=== PATIENT | male | born 1945 | race Caucasian/White ===

== ENCOUNTER 2021-04-08 21:06 | Inpatient (IN) ==
[2021-04-08] MEDS ORDERED: Ondansetron 4 MG/2 ML VIAL IVP PRN (23:30)
[2021-04-08] MEDS ORDERED: Naloxone 0.4 MG/ML INJ IVP PRN (23:30)
[2021-04-08] MEDS ORDERED: D5% in Water 1,000 ML IVC PRN (23:32)
[2021-04-08] MEDS ORDERED: *HR* Dextrose 50 % in Water (Vial) 50 ML VIAL IVP PRN (23:32)
[2021-04-08] MEDS ORDERED: Dextrose Gel 15 GM/37.5 ML TUBE PO PRN ×2 (23:32)
[2021-04-08] MEDS ORDERED: Perflutren Lipid Microsphere 1.3 ML in 0.9 % Sodium Chloride 8.7 ML IVP PRN (23:33)
[2021-04-09] MEDS ORDERED: methylPREDNISolone 125 MG/2 ML VIAL IVP ONE (00:37)
[2021-04-09] MEDS ORDERED: Ipratropium/Albuterol Neb 3 ML IH ONE (00:37)
[2021-04-09 00:48] LABS: Basophils % 0.1 %; Hematocrit 47.7 % (37.5-50.1); Hemoglobin 15.1 g/dL (12.9-16.9); Immature Granulocytes % 0.6 % (0-4); Lymphocytes # 0.8 K/mcL (0.6-4.6); Lymphocytes % 5.2 %; Mean Corpuscular HGB Conc 31.7 g/dL (31.6-35.5); Mean Corpuscular Hemoglobin 30.2 pg (28.0-33.3); Mean Corpuscular Volume 95.4 fL (83.0-100.0); Mean Platelet Volume 9.9 fL (9.4-12.4); Monocytes # 0.8 K/mcL (0.0-1.3); Monocytes % 4.7 %; Neutrophils # 14.3 K/mcL (1.6-8.9); Nucleated Red Blood Cells 0.1 /100 WBC (0); Platelet Count 182 K/mcL (140-400); Red Cell Distribution Width 13.7 % (11.5-14.5); Segmented Neutrophils % 89.4 %
[2021-04-09 00:54] LABS: INR 1.2; Prothrombin Time 14.3 Seconds (9.4-12.1)
[2021-04-09 01:08] LABS: Albumin 3.3 g/dL (3.5-5.7); Albumin/Globulin Ratio 1.1 (1.1-2.2); Bilirubin,Total 0.5 mg/dL (0.3-1.0); Calcium 8.6 mg/dL (8.6-10.3); Globulin 3.1 g/dL (2.4-3.5); Magnesium 2.1 mg/dL (1.6-2.6); Potassium 4.7 mEq/L (3.5-5.1); Total Protein 6.4 g/dL (6.4-8.9)
[2021-04-09 02:05] LABS: ABG Base Excess 8 mEq/L (-2 to 3); ABG HCO3 37 mEq/L (21-27); ABG Oxygen Saturation 96 % (95-98); ABG PCO2 74 mmHg (35-45); ABG PH 7.31 pH Units (7.32-7.45); ABG PO2 97 mmHg (85-104); ABG TCO2 40 mEq/L (20-26); Blood Gas Modality BIVENT
[2021-04-09] MEDS ORDERED: *HR* Heparin 5,000 UNIT/ML VIAL IVP ONE (02:08)
[2021-04-09] MEDS ORDERED: *HR* Heparin 5,000 UNIT/ML VIAL IVP PRN (02:08)
[2021-04-09 02:29] LABS: Activated Partial Thrombo Time 27.4 Seconds (26.0-36.0)
[2021-04-09] MEDS: Heparin 25,000UNIT/250ML 1/2NS 25,000 UNIT/250 ML IV.SOLN IVC SCH (03:10)
[2021-04-09 05:33] LABS: Adenovirus Not Detected (Not Detect); Bordetella Pertussis Not Detected (Not Detect); Chlamydophila pneumoniae Not Detected (Not Detect); Coronavirus 229E Not Detected (Not Detect); Coronavirus HKU1 Not Detected (Not Detect); Coronavirus NL63 Not Detected (Not Detect); Coronavirus OC43 Not Detected (Not Detect); Human Metapneumovirus Not Detected (Not Detect); Human Rhinovirus/Enterovirus Not Detected (Not Detect); Influenza A Subtype 2009 H1 Not Detected (Not Detect); Influenza B Not Detected (Not Detect); Mycoplasma pneumoniae Not Detected (Not Detect); Parainfluenza Virus 1 Not Detected (Not Detect); Parainfluenza Virus 2 Not Detected (Not Detect); Parainfluenza Virus 3 Not Detected (Not Detect); Parainfluenza Virus 4 Not Detected (Not Detect); Respiratory Syncytial Virus Not Detected (Not Detect); SARS-CoV-2 Not Detected (Not Detect)
[2021-04-09] MEDS ORDERED: Insulin LISPRO 300 UNITS/3 ML VIAL SUBQ SCH ×2 (07:30→21:00)
[2021-04-09] MEDS: cefTRIAXone 1,000 MG in 0.9 % Sodium Chloride Mini Bag 100 ML IVPB SCH (10:24)
[2021-04-09] MEDS: Azithromycin 500 MG in 0.9 % Sodium Chloride 250 ML IVPB SCH (10:25)
[2021-04-09] MEDS: *HR* Heparin 5,000 UNIT/ML VIAL IVP PRN ×2 (11:43→20:39)
[2021-04-09] MEDS: methylPREDNISolone 125 MG/2 ML VIAL IVP SCH ×2 (12:01→23:41)
[2021-04-09 21:35] LABS: Bilirubin,Urine Negative (Negative); Blood,Urine Negative (Negative); Clarity,Urine Clear (Clear); Color,Urine Yellow (Yellow); Glucose,Urine (UA) Normal (Normal); Ketones,Urine Trace mg/dL (Negative); Leukocyte Esterase,Urine Negative (Negative); Nitrite,Urine Negative (Negative); PH,Urine 5.5 pH Units (5.0-8.0); Protein,Urine Trace mg/dL (Neg-Trace); Specific Gravity,Urine 1.024 (1.010-1.025); Urobilinogen,Urine Normal (Normal)
[2021-04-09 22:04] LABS: Creatinine,Urine 185 mg/dL; Sodium, Urine < 10.0 mEq/L
[2021-04-10 02:57] LABS: Basophils % 0.1 %; Hematocrit 46.9 % (37.5-50.1); Hemoglobin 14.8 g/dL (12.9-16.9); Immature Granulocytes % 0.6 % (0-4); Lymphocytes # 0.4 K/mcL (0.6-4.6); Lymphocytes % 3.4 %; Mean Corpuscular HGB Conc 31.6 g/dL (31.6-35.5); Mean Corpuscular Hemoglobin 30.5 pg (28.0-33.3); Mean Corpuscular Volume 96.7 fL (83.0-100.0); Mean Platelet Volume 10.1 fL (9.4-12.4); Monocytes # 0.2 K/mcL (0.0-1.3); Monocytes % 1.6 %; Neutrophils # 12.1 K/mcL (1.6-8.9); Platelet Count 193 K/mcL (140-400); Red Blood Count 4.85 M/mcL (4.19-5.50); Red Cell Distribution Width 13.7 % (11.5-14.5); Segmented Neutrophils % 94.3 %; White Blood Count 12.8 K/mcL (4.3-11.1)
[2021-04-10 03:10] LABS: Calcium 8.9 mg/dL (8.6-10.3); Magnesium 2.7 mg/dL (1.6-2.6); Phosphorous 4.6 mg/dL (2.7-4.5)
[2021-04-10] MEDS: Heparin 25,000UNIT/250ML 1/2NS 25,000 UNIT/250 ML IV.SOLN IVC SCH (04:48)
[2021-04-10] MEDS: Ipratropium/Albuterol Neb 3 ML IH PRN (08:02)
[2021-04-10] MEDS: Azithromycin 500 MG in 0.9 % Sodium Chloride 250 ML IVPB SCH (08:45)
[2021-04-10] MEDS: cefTRIAXone 1,000 MG in 0.9 % Sodium Chloride Mini Bag 100 ML IVPB SCH (08:45)
[2021-04-10] MEDS: methylPREDNISolone 125 MG/2 ML VIAL IVP SCH (11:24)
[2021-04-10] MEDS: Aspirin Enteric Coated 81 MG Tablet PO SCH (14:23)
[2021-04-10 15:02] LABS: Estimated Average Glucose 131 mg/dl; Hemoglobin A1C 6.2 %
[2021-04-11] MEDS: methylPREDNISolone 125 MG/2 ML VIAL IVP SCH ×2 (00:07→11:42)
[2021-04-11] MEDS: Heparin 25,000UNIT/250ML 1/2NS 25,000 UNIT/250 ML IV.SOLN IVC SCH (00:49)
[2021-04-11 06:18] LABS: ABG Base Excess 8 mEq/L (-2 to 3); ABG HCO3 40 mEq/L (21-27); ABG Oxygen Saturation 84 % (95-98); ABG PCO2 95 mmHg (35-45); ABG PH 7.24 pH Units (7.32-7.45); ABG PO2 61 mmHg (85-104); ABG TCO2 43 mEq/L (20-26); Blood Gas VT 550 cc
[2021-04-11] MEDS: Ipratropium/Albuterol Neb 3 ML IH PRN (06:18)
[2021-04-11] MEDS: Azithromycin 500 MG in 0.9 % Sodium Chloride 250 ML IVPB SCH (09:09)
[2021-04-11] MEDS: amLODIPine 5 MG TABLET PO SCH (09:10)
[2021-04-11] MEDS: Aspirin Enteric Coated 81 MG Tablet PO SCH (09:10)
[2021-04-11 09:30] LABS: Basophils % 0.1 %; Hematocrit 49.1 % (37.5-50.1); Hemoglobin 15.1 g/dL (12.9-16.9); Immature Granulocytes % 0.8 % (0-4); Lymphocytes # 0.3 K/mcL (0.6-4.6); Lymphocytes % 3.8 %; Mean Corpuscular HGB Conc 30.8 g/dL (31.6-35.5); Mean Corpuscular Hemoglobin 30.8 pg (28.0-33.3); Mean Platelet Volume 10.2 fL (9.4-12.4); Monocytes # 0.2 K/mcL (0.0-1.3); Monocytes % 2.6 %; Neutrophils # 7.1 K/mcL (1.6-8.9); Platelet Count 159 K/mcL (140-400); Red Blood Count 4.91 M/mcL (4.19-5.50); Red Cell Distribution Width 13.8 % (11.5-14.5); Segmented Neutrophils % 92.7 %; White Blood Count 7.7 K/mcL (4.3-11.1)
[2021-04-11 09:51] LABS: BUN/Creatinine Ratio 61 (6-26); Blood Urea Nitrogen 81 mg/dL (8-23); Calcium 8.9 mg/dL (8.6-10.3); Carbon Dioxide 36 mEq/L (23-29); Chloride 101 mEq/L (98-107); Glucose 210 mg/dL (70-105); Magnesium 2.9 mg/dL (1.6-2.6); Osmolality,Calculated 329 (280-300); Phosphorous 3.8 mg/dL (2.7-4.5); Potassium 5.3 mEq/L (3.5-5.1); Sodium 144 mEq/L (136-145); eGFR For African Americans > 60 (> 60); eGFR For Non-African Americans 53 (> 60)
[2021-04-11 12:07] LABS: ABG Base Excess 9 mEq/L (-2 to 3); ABG HCO3 39 mEq/L (21-27); ABG Oxygen Saturation 90 % (95-98); ABG PCO2 74 mmHg (35-45); ABG PH 7.33 pH Units (7.32-7.45); ABG PO2 66 mmHg (85-104); ABG TCO2 41 mEq/L (20-26); Blood Gas Modality avaps; Blood Gas Pressure Support 35 cm H2O; Blood Gas VT 550 cc
[2021-04-11] MEDS: Insulin LISPRO 300 UNITS/3 ML VIAL SUBQ SCH (16:08)
[2021-04-11] MEDS: *HR* Heparin 5,000 UNIT/ML VIAL SQ SCH (16:09)
[2021-04-11] MEDS: Budesonide/Formoterol 160/4.5 1 PUFF INH IH SCH (20:10)
[2021-04-11] MEDS ORDERED: Haloperidol Lactate 5 MG/ML VIAL IVP ONE (20:11)
[2021-04-11 20:48] LABS: ABG Base Excess 10 mEq/L (-2 to 3); ABG HCO3 40 mEq/L (21-27); ABG Oxygen Saturation 97 % (95-98); ABG PCO2 78 mmHg (35-45); ABG PH 7.33 pH Units (7.32-7.45); ABG PO2 100 mmHg (85-104); ABG TCO2 43 mEq/L (20-26); Blood Gas Modality BiLevel; Blood Gas VT 550 cc
[2021-04-11] MEDS ORDERED: *HR* Metoprolol 5 MG/5 ML VIAL IVP ONE (22:22)
[2021-04-11] MEDS: Insulin DETEMIR 100 UNIT/ML X5UNITS SUBQ SCH (22:34)
[2021-04-12] MEDS: methylPREDNISolone 125 MG/2 ML VIAL IVP SCH ×3 (00:47→14:21)
[2021-04-12] MEDS ORDERED: Haloperidol Lactate 5 MG/ML VIAL IVP ONE ×2 (03:32→14:13)
[2021-04-12] MEDS: *HR* Heparin 5,000 UNIT/ML VIAL SQ SCH ×2 (05:30→17:52)
[2021-04-12 06:51] LABS: Hematocrit 47.6 % (37.5-50.1); Hemoglobin 14.9 g/dL (12.9-16.9); Immature Granulocytes % 1.6 % (0-4); Lymphocytes # 0.3 K/mcL (0.6-4.6); Lymphocytes % 4.4 %; Mean Corpuscular HGB Conc 31.3 g/dL (31.6-35.5); Mean Corpuscular Hemoglobin 30.6 pg (28.0-33.3); Mean Corpuscular Volume 97.7 fL (83.0-100.0); Mean Platelet Volume 10.2 fL (9.4-12.4); Monocytes # 0.1 K/mcL (0.0-1.3); Monocytes % 2.3 %; Neutrophils # 5.6 K/mcL (1.6-8.9); Platelet Count 156 K/mcL (140-400); Red Blood Count 4.87 M/mcL (4.19-5.50); Red Cell Distribution Width 13.6 % (11.5-14.5); Segmented Neutrophils % 91.7 %; White Blood Count 6.1 K/mcL (4.3-11.1)
[2021-04-12 07:01] LABS: BUN/Creatinine Ratio 61 (6-26); Blood Urea Nitrogen 73 mg/dL (8-23); Calcium 9.3 mg/dL (8.6-10.3); Carbon Dioxide 39 mEq/L (23-29); Chloride 106 mEq/L (98-107); Glucose 164 mg/dL (70-105); Magnesium 3.1 mg/dL (1.6-2.6); Osmolality,Calculated 333 (280-300); Phosphorous 3.3 mg/dL (2.7-4.5); Potassium 5.5 mEq/L (3.5-5.1); Sodium 149 mEq/L (136-145); eGFR For African Americans > 60 (> 60); eGFR For Non-African Americans 59 (> 60)
[2021-04-12] MEDS: Budesonide/Formoterol 160/4.5 1 PUFF INH IH SCH ×2 (07:29→20:37)
[2021-04-12] MEDS: Insulin LISPRO 300 UNITS/3 ML VIAL SUBQ SCH ×3 (08:06→17:52)
[2021-04-12] MEDS ORDERED: Furosemide 20 MG TABLET PO SCH (09:00)
[2021-04-12] MEDS: Azithromycin 500 MG in 0.9 % Sodium Chloride 250 ML IVPB SCH (10:00)
[2021-04-12] MEDS: Aspirin Enteric Coated 81 MG Tablet PO SCH (11:51)
[2021-04-12] MEDS: amLODIPine 5 MG TABLET PO SCH (11:52)
[2021-04-12] MEDS: Insulin DETEMIR 100 UNIT/ML X5UNITS SUBQ SCH ×2 (11:54→21:47)
[2021-04-12] MEDS ORDERED: Isovue-370 500 ML BOTTLE IVP ONE ×2 (13:33)
[2021-04-12 14:30] LABS: ABG Base Excess 14 mEq/L (-2 to 3); ABG HCO3 44 mEq/L (21-27); ABG Oxygen Saturation 93 % (95-98); ABG PCO2 82 mmHg (35-45); ABG PH 7.34 pH Units (7.32-7.45); ABG PO2 77 mmHg (85-104); ABG TCO2 46 mEq/L (20-26)
[2021-04-12] MEDS: Ipratropium/Albuterol Neb 3 ML IH PRN (14:30)
[2021-04-12] MEDS: Doxycycline 100 MG in 0.9 % Sodium Chloride Mini Bag 100 ML IVPB SCH ×2 (15:07→21:46)
[2021-04-12 15:52] LABS: ABG Base Excess 13 mEq/L (-2 to 3); ABG HCO3 41 mEq/L (21-27); ABG Oxygen Saturation 89 % (95-98); ABG PCO2 69 mmHg (35-45); ABG PH 7.38 pH Units (7.32-7.45); ABG PO2 60 mmHg (85-104); ABG TCO2 43 mEq/L (20-26); Blood Gas VT 550 cc
[2021-04-12] MEDS: Dexmedetomidine HCl 400 MCG/100 ML MLS IVC SCH (19:05)
[2021-04-13] MEDS: methylPREDNISolone 125 MG/2 ML VIAL IVP SCH ×2 (02:02→12:52)
[2021-04-13 02:22] LABS: Hemoglobin 15.3 g/dL (12.9-16.9); Immature Granulocytes % 0.5 % (0-4); Lymphocytes # 0.2 K/mcL (0.6-4.6); Lymphocytes % 4.7 %; Mean Corpuscular HGB Conc 30.6 g/dL (31.6-35.5); Mean Corpuscular Hemoglobin 30.5 pg (28.0-33.3); Mean Corpuscular Volume 99.6 fL (83.0-100.0); Mean Platelet Volume 10.1 fL (9.4-12.4); Monocytes # 0.2 K/mcL (0.0-1.3); Monocytes % 4.2 %; Neutrophils # 3.9 K/mcL (1.6-8.9); Platelet Count 128 K/mcL (140-400); Red Blood Count 5.02 M/mcL (4.19-5.50); Red Cell Distribution Width 13.6 % (11.5-14.5); Segmented Neutrophils % 90.6 %; White Blood Count 4.3 K/mcL (4.3-11.1)
[2021-04-13 02:45] LABS: BUN/Creatinine Ratio 50 (6-26); Blood Urea Nitrogen 61 mg/dL (8-23); Calcium 9.4 mg/dL (8.6-10.3); Carbon Dioxide 42 mEq/L (23-29); Chloride 108 mEq/L (98-107); Glucose 164 mg/dL (70-105); Magnesium 2.9 mg/dL (1.6-2.6); Osmolality,Calculated 337 (280-300); Phosphorous 3.1 mg/dL (2.7-4.5); Potassium 5.3 mEq/L (3.5-5.1); Sodium 153 mEq/L (136-145); eGFR For African Americans > 60 (> 60); eGFR For Non-African Americans 58 (> 60)
[2021-04-13 03:54] LABS: ABG Base Excess 17 mEq/L (-2 to 3); ABG HCO3 47 mEq/L (21-27); ABG Oxygen Saturation 91 % (95-98); ABG PCO2 80 mmHg (35-45); ABG PH 7.38 pH Units (7.32-7.45); ABG PO2 66 mmHg (85-104); ABG TCO2 49 mEq/L (20-26); Blood Gas Modality BiLevel; Blood Gas VT 577 cc
[2021-04-13 06:16] LABS: ABG Base Excess 14 mEq/L (-2 to 3); ABG HCO3 45 mEq/L (21-27); ABG Oxygen Saturation 96 % (95-98); ABG PCO2 85 mmHg (35-45); ABG PH 7.34 pH Units (7.32-7.45); ABG PO2 94 mmHg (85-104); ABG TCO2 48 mEq/L (20-26); Blood Gas Modality BiLevel; Blood Gas VT 550 cc
[2021-04-13] MEDS: Doxycycline 100 MG in 0.9 % Sodium Chloride Mini Bag 100 ML IVPB SCH ×2 (06:16→18:00)
[2021-04-13] MEDS: *HR* Heparin 5,000 UNIT/ML VIAL SQ SCH ×2 (06:17→18:00)
[2021-04-13] MEDS: Dexmedetomidine HCl 400 MCG/100 ML MLS IVC SCH ×2 (06:20→19:19)
[2021-04-13] MEDS ORDERED: D5% in Water 1,000 ML IVC SCH (07:45)
[2021-04-13 08:09] LABS: BUN/Creatinine Ratio 52 (6-26); Blood Urea Nitrogen 58 mg/dL (8-23); Calcium 9.4 mg/dL (8.6-10.3); Carbon Dioxide 43 mEq/L (23-29); Chloride 107 mEq/L (98-107); Glucose 148 mg/dL (70-105); Osmolality,Calculated 337 (280-300); Potassium 4.5 mEq/L (3.5-5.1); Sodium 154 mEq/L (136-145); eGFR For African Americans > 60 (> 60); eGFR For Non-African Americans > 60 (> 60)
[2021-04-13] MEDS: Insulin LISPRO 300 UNITS/3 ML VIAL SUBQ SCH ×3 (09:32→18:03)
[2021-04-13] MEDS: Aspirin Enteric Coated 81 MG Tablet PO SCH (09:44)
[2021-04-13] MEDS: amLODIPine 5 MG TABLET PO SCH (09:44)
[2021-04-13] MEDS: Insulin DETEMIR 100 UNIT/ML X5UNITS SUBQ SCH ×2 (09:44→21:37)
[2021-04-13] MEDS: Budesonide/Formoterol 160/4.5 1 PUFF INH IH SCH ×2 (10:36→20:23)
[2021-04-13] MEDS: Ipratropium/Albuterol Neb 3 ML IH PRN (22:07)
[2021-04-13 22:25] LABS: Blood Gas VT 550 cc; Mixed Venous Blood pCO2 89 mmHg (44-46); Mixed Venous Blood pH 7.31 pH Units (7.34-7.36); Mixed Venous Blood pO2 23 mmHg (35-45)
[2021-04-14 00:54] LABS: Basophils % 0.2 %; Hemoglobin 15.1 g/dL (12.9-16.9); Immature Granulocytes % 0.5 % (0-4); Lymphocytes # 0.3 K/mcL (0.6-4.6); Lymphocytes % 4.7 %; Mean Corpuscular HGB Conc 30.2 g/dL (31.6-35.5); Mean Corpuscular Hemoglobin 29.8 pg (28.0-33.3); Mean Corpuscular Volume 98.6 fL (83.0-100.0); Mean Platelet Volume 10.2 fL (9.4-12.4); Monocytes # 0.3 K/mcL (0.0-1.3); Monocytes % 4.5 %; Neutrophils # 5.4 K/mcL (1.6-8.9); Platelet Count 126 K/mcL (140-400); Red Blood Count 5.07 M/mcL (4.19-5.50); Red Cell Distribution Width 13.6 % (11.5-14.5); Segmented Neutrophils % 90.1 %
[2021-04-14 01:13] LABS: BUN/Creatinine Ratio 48 (6-26); Blood Urea Nitrogen 49 mg/dL (8-23); Calcium 9.1 mg/dL (8.6-10.3); Carbon Dioxide 40 mEq/L (23-29); Chloride 107 mEq/L (98-107); Glucose 146 mg/dL (70-105); Magnesium 2.5 mg/dL (1.6-2.6); Osmolality,Calculated 326 (280-300); Phosphorous 2.7 mg/dL (2.7-4.5); Potassium 4.6 mEq/L (3.5-5.1); Sodium 150 mEq/L (136-145); eGFR For African Americans > 60 (> 60); eGFR For Non-African Americans > 60 (> 60)
[2021-04-14] MEDS: methylPREDNISolone 125 MG/2 ML VIAL IVP SCH ×2 (01:29→14:15)
[2021-04-14] MEDS: Doxycycline 100 MG in 0.9 % Sodium Chloride Mini Bag 100 ML IVPB SCH ×2 (04:55→18:42)
[2021-04-14] MEDS: *HR* Heparin 5,000 UNIT/ML VIAL SQ SCH ×2 (04:55→18:44)
[2021-04-14] MEDS: *HR* HYDROcodone/Acet 10/325 mg TABLET PO PRN (05:43)
[2021-04-14] MEDS: Insulin DETEMIR 100 UNIT/ML X5UNITS SUBQ SCH ×2 (08:48→21:01)
[2021-04-14] MEDS: Aspirin Enteric Coated 81 MG Tablet PO SCH (08:48)
[2021-04-14] MEDS: Insulin LISPRO 300 UNITS/3 ML VIAL SUBQ SCH ×3 (08:49→18:43)
[2021-04-14] MEDS: Ipratropium/Albuterol Neb 3 ML IH PRN (08:51)
[2021-04-14] MEDS: Budesonide/Formoterol 160/4.5 1 PUFF INH IH SCH ×2 (08:51→20:12)
[2021-04-14] MEDS: amLODIPine 5 MG TABLET PO SCH (09:01)
[2021-04-14] MEDS: Dexmedetomidine HCl 400 MCG/100 ML MLS IVC SCH (10:37)
[2021-04-14] MEDS: Ipratropium/Albuterol Neb 3 ML IH SCH ×3 (11:51→20:12)
[2021-04-14] MEDS ORDERED: D5% in Water 1,000 ML IVC SCH (14:15)
[2021-04-14] MEDS ORDERED: Ipratropium/Albuterol Neb 3 ML ONE (15:59)
[2021-04-15] MEDS: Ipratropium/Albuterol Neb 3 ML IH SCH ×7 (00:05→23:23)
[2021-04-15] MEDS: methylPREDNISolone 125 MG/2 ML VIAL IVP SCH ×2 (02:43→14:18)
[2021-04-15] MEDS: Dexmedetomidine HCl 400 MCG/100 ML MLS IVC SCH (04:38)
[2021-04-15] MEDS: *HR* Heparin 5,000 UNIT/ML VIAL SQ SCH ×2 (05:46→17:42)
[2021-04-15] MEDS: Doxycycline 100 MG in 0.9 % Sodium Chloride Mini Bag 100 ML IVPB SCH ×2 (05:46→17:42)
[2021-04-15] MEDS: Budesonide/Formoterol 160/4.5 1 PUFF INH IH SCH ×2 (07:34→19:33)
[2021-04-15 07:45] LABS: BUN/Creatinine Ratio 46 (6-26); Basophils % 0.2 %; Blood Urea Nitrogen 46 mg/dL (8-23); Calcium 8.7 mg/dL (8.6-10.3); Carbon Dioxide 39 mEq/L (23-29); Chloride 104 mEq/L (98-107); Glucose 251 mg/dL (70-105); Immature Granulocytes % 1.9 % (0-4); Magnesium 2.4 mg/dL (1.6-2.6); Osmolality,Calculated 322 (280-300); Phosphorous 2.1 mg/dL (2.7-4.5); Potassium 4.7 mEq/L (3.5-5.1); Sodium 146 mEq/L (136-145); eGFR For African Americans > 60 (> 60); eGFR For Non-African Americans > 60 (> 60)
[2021-04-15 07:47] LABS: Hematocrit 44.6 % (37.5-50.1); Hemoglobin 14.2 g/dL (12.9-16.9); Immature Platelets 4.7 % (1.1-6.1); Lymphocytes # 0.3 K/mcL (0.6-4.6); Lymphocytes % 5.6 %; Mean Corpuscular HGB Conc 31.8 g/dL (31.6-35.5); Mean Corpuscular Volume 94.1 fL (83.0-100.0); Mean Platelet Volume 10.7 fL (9.4-12.4); Monocytes # 0.2 K/mcL (0.0-1.3); Monocytes % 2.9 %; Neutrophils # 4.7 K/mcL (1.6-8.9); Platelet Count 99 K/mcL (140-400); Red Blood Count 4.74 M/mcL (4.19-5.50); Red Cell Distribution Width 13.5 % (11.5-14.5); Segmented Neutrophils % 89.4 %; White Blood Count 5.2 K/mcL (4.3-11.1)
[2021-04-15] MEDS: Aspirin Enteric Coated 81 MG Tablet PO SCH (08:45)
[2021-04-15] MEDS: Insulin DETEMIR 100 UNIT/ML X5UNITS SUBQ SCH ×2 (08:45→20:21)
[2021-04-15] MEDS: Insulin LISPRO 300 UNITS/3 ML VIAL SUBQ SCH ×3 (08:46→17:42)
[2021-04-15] MEDS: amLODIPine 5 MG TABLET PO SCH (10:00)
[2021-04-15] MEDS ORDERED: Saline Nasal Spray 44 ML BOTTLE NS PRN (19:39)
[2021-04-16 01:43] LABS: BUN/Creatinine Ratio 42 (6-26); Blood Urea Nitrogen 42 mg/dL (8-23); Calcium 8.6 mg/dL (8.6-10.3); Carbon Dioxide 36 mEq/L (23-29); Chloride 99 mEq/L (98-107); Glucose 194 mg/dL (70-105); Magnesium 2.2 mg/dL (1.6-2.6); Osmolality,Calculated 308 (280-300); Phosphorous 1.7 mg/dL (2.7-4.5); Potassium 4.4 mEq/L (3.5-5.1); Sodium 141 mEq/L (136-145); eGFR For African Americans > 60 (> 60); eGFR For Non-African Americans > 60 (> 60)
[2021-04-16] MEDS: methylPREDNISolone 125 MG/2 ML VIAL IVP SCH ×2 (02:30→12:08)
[2021-04-16] MEDS: Ipratropium/Albuterol Neb 3 ML IH SCH ×6 (03:26→23:29)
[2021-04-16] MEDS: Doxycycline 100 MG in 0.9 % Sodium Chloride Mini Bag 100 ML IVPB SCH (05:02)
[2021-04-16] MEDS: *HR* Heparin 5,000 UNIT/ML VIAL SQ SCH ×2 (05:02→17:28)
[2021-04-16] MEDS: Budesonide/Formoterol 160/4.5 1 PUFF INH IH SCH ×2 (07:11→19:59)
[2021-04-16] MEDS: Aspirin Enteric Coated 81 MG Tablet PO SCH (09:34)
[2021-04-16] MEDS: Insulin DETEMIR 100 UNIT/ML X5UNITS SUBQ SCH ×2 (09:37→20:35)
[2021-04-16] MEDS: Insulin LISPRO 300 UNITS/3 ML VIAL SUBQ SCH ×3 (09:37→17:28)
[2021-04-16] MEDS: amLODIPine 5 MG TABLET PO SCH (11:57)
[2021-04-16] MEDS: Doxycycline 100 MG CAPSULE PO SCH (20:35)
[2021-04-17] MEDS: Dexmedetomidine HCl 400 MCG/100 ML MLS IVC SCH (01:54)
[2021-04-17] MEDS: Ipratropium/Albuterol Neb 3 ML IH SCH ×6 (03:42→23:19)
[2021-04-17] MEDS: *HR* Heparin 5,000 UNIT/ML VIAL SQ SCH ×2 (05:14→16:57)
[2021-04-17] MEDS: Acetaminophen 325 MG TABLET PO PRN (06:27)
[2021-04-17] MEDS: Budesonide/Formoterol 160/4.5 1 PUFF INH IH SCH ×2 (07:37→19:49)
[2021-04-17] MEDS: predniSONE 20 MG TABLET PO SCH (08:00)
[2021-04-17] MEDS: Doxycycline 100 MG CAPSULE PO SCH ×2 (08:00→20:43)
[2021-04-17] MEDS: Aspirin Enteric Coated 81 MG Tablet PO SCH (08:00)
[2021-04-17] MEDS: Insulin LISPRO 300 UNITS/3 ML VIAL SUBQ SCH ×3 (08:01→16:58)
[2021-04-17] MEDS: Furosemide 20 MG/2 ML VIAL IVP SCH ×2 (08:01→20:43)
[2021-04-17] MEDS: amLODIPine 5 MG TABLET PO SCH (08:01)
[2021-04-17] MEDS: Insulin DETEMIR 100 UNIT/ML X5UNITS SUBQ SCH ×2 (08:08→20:43)
[2021-04-17] MEDS: *HR* HYDROcodone/Acet 10/325 mg TABLET PO PRN (20:42)
[2021-04-18] MEDS: Ipratropium/Albuterol Neb 3 ML IH SCH ×6 (04:03→23:00)
[2021-04-18 04:34] LABS: Hematocrit 41.1 % (37.5-50.1)
[2021-04-18 04:51] LABS: BUN/Creatinine Ratio 47 (6-26); Blood Urea Nitrogen 52 mg/dL (8-23); Carbon Dioxide 39 mEq/L (23-29); Chloride 101 mEq/L (98-107); Glucose 111 mg/dL (70-105); Magnesium 2.1 mg/dL (1.6-2.6); Osmolality,Calculated 305 (280-300); Phosphorous 3.8 mg/dL (2.7-4.5); Potassium 4.7 mEq/L (3.5-5.1); Sodium 140 mEq/L (136-145); eGFR For African Americans > 60 (> 60); eGFR For Non-African Americans > 60 (> 60)
[2021-04-18] MEDS: *HR* Heparin 5,000 UNIT/ML VIAL SQ SCH ×2 (06:07→17:26)
[2021-04-18] MEDS: Budesonide/Formoterol 160/4.5 1 PUFF INH IH SCH ×2 (07:51→19:56)
[2021-04-18] MEDS: Insulin LISPRO 300 UNITS/3 ML VIAL SUBQ SCH ×3 (08:00→16:27)
[2021-04-18] MEDS: predniSONE 20 MG TABLET PO SCH (08:12)
[2021-04-18] MEDS: Doxycycline 100 MG CAPSULE PO SCH ×2 (08:12→21:28)
[2021-04-18] MEDS: Aspirin Enteric Coated 81 MG Tablet PO SCH (08:12)
[2021-04-18] MEDS: amLODIPine 5 MG TABLET PO SCH (08:13)
[2021-04-18] MEDS: Furosemide 20 MG/2 ML VIAL IVP SCH ×2 (08:13→21:28)
[2021-04-18] MEDS: Insulin DETEMIR 100 UNIT/ML X5UNITS SUBQ SCH ×2 (08:18→21:29)
[2021-04-19 02:09] LABS: Basophils % 0.1 %; Monocytes % 5.2 %; Red Cell Distribution Width 13.2 % (11.5-14.5); Segmented Neutrophils % 88.3 %
[2021-04-19 02:11] LABS: Hemoglobin 13.1 g/dL (12.9-16.9); Immature Granulocytes % 0.4 % (0-4); Immature Platelets 9.3 % (1.1-6.1); Lymphocytes # 0.5 K/mcL (0.6-4.6); Mean Corpuscular HGB Conc 32.8 g/dL (31.6-35.5); Mean Corpuscular Hemoglobin 30.4 pg (28.0-33.3); Mean Corpuscular Volume 92.8 fL (83.0-100.0); Mean Platelet Volume 11.4 fL (9.4-12.4); Monocytes # 0.4 K/mcL (0.0-1.3); Neutrophils # 7.1 K/mcL (1.6-8.9); Red Blood Count 4.31 M/mcL (4.19-5.50)
[2021-04-19 02:29] LABS: BUN/Creatinine Ratio 45 (6-26); Blood Urea Nitrogen 48 mg/dL (8-23); Carbon Dioxide 36 mEq/L (23-29); Chloride 99 mEq/L (98-107); Glucose 173 mg/dL (70-105); Osmolality,Calculated 305 (280-300); Potassium 4.6 mEq/L (3.5-5.1); Sodium 139 mEq/L (136-145); eGFR For African Americans > 60 (> 60); eGFR For Non-African Americans > 60 (> 60)
[2021-04-19 02:35] LABS: Platelet Count 71 K/mcL (140-400)
[2021-04-19 02:36] LABS: Platelet Estimate Slight Decrease (Normal)
[2021-04-19] MEDS: Ipratropium/Albuterol Neb 3 ML IH SCH ×6 (04:12→23:42)
[2021-04-19] MEDS: *HR* Heparin 5,000 UNIT/ML VIAL SQ SCH (05:34)
[2021-04-19 05:39] LABS: ABG Base Excess 10 mEq/L (-2 to 3); ABG HCO3 36 mEq/L (21-27); ABG Oxygen Saturation 83 % (95-98); ABG PCO2 60 mmHg (35-45); ABG PH 7.39 pH Units (7.32-7.45); ABG PO2 49 mmHg (85-104); ABG TCO2 38 mEq/L (20-26)
[2021-04-19] MEDS: Budesonide/Formoterol 160/4.5 1 PUFF INH IH SCH ×2 (07:25→23:42)
[2021-04-19] MEDS: Aspirin Enteric Coated 81 MG Tablet PO SCH (07:44)
[2021-04-19] MEDS: Doxycycline 100 MG CAPSULE PO SCH ×2 (07:44→20:11)
[2021-04-19] MEDS: Furosemide 20 MG/2 ML VIAL IVP SCH ×2 (07:44→20:11)
[2021-04-19] MEDS: Insulin LISPRO 300 UNITS/3 ML VIAL SUBQ SCH ×3 (07:44→17:04)
[2021-04-19] MEDS: Insulin DETEMIR 100 UNIT/ML X5UNITS SUBQ SCH ×2 (07:44→20:11)
[2021-04-19] MEDS: predniSONE 20 MG TABLET PO SCH (07:44)
[2021-04-19] MEDS: amLODIPine 5 MG TABLET PO SCH (07:44)
[2021-04-19] MEDS: levoFLOXacin 750 MG/150 ML 750 MG/150 ML BAG IVPB SCH (11:48)
[2021-04-19 15:08] LABS: Adenovirus Not Detected (Not Detect); Bordetella Pertussis Not Detected (Not Detect); Chlamydophila pneumoniae Not Detected (Not Detect); Coronavirus 229E Not Detected (Not Detect); Coronavirus HKU1 Not Detected (Not Detect); Coronavirus NL63 Not Detected (Not Detect); Coronavirus OC43 Not Detected (Not Detect); Human Metapneumovirus Not Detected (Not Detect); Human Rhinovirus/Enterovirus Not Detected (Not Detect); Influenza A Subtype 2009 H1 Not Detected (Not Detect); Influenza B Not Detected (Not Detect); Mycoplasma pneumoniae Not Detected (Not Detect); Parainfluenza Virus 1 Not Detected (Not Detect); Parainfluenza Virus 2 Not Detected (Not Detect); Parainfluenza Virus 3 Not Detected (Not Detect); Parainfluenza Virus 4 Not Detected (Not Detect); Respiratory Syncytial Virus Not Detected (Not Detect); SARS-CoV-2 Not Detected (Not Detect)
[2021-04-20] MEDS: Ipratropium/Albuterol Neb 3 ML IH SCH ×6 (04:12→23:13)
[2021-04-20] MEDS: Budesonide/Formoterol 160/4.5 1 PUFF INH IH SCH ×2 (07:38→19:43)
[2021-04-20] MEDS: Aspirin Enteric Coated 81 MG Tablet PO SCH (07:51)
[2021-04-20] MEDS: levoFLOXacin 750 MG/150 ML 750 MG/150 ML BAG IVPB SCH (07:52)
[2021-04-20] MEDS: amLODIPine 5 MG TABLET PO SCH (07:52)
[2021-04-20] MEDS: Furosemide 20 MG/2 ML VIAL IVP SCH ×2 (07:52→21:17)
[2021-04-20] MEDS: predniSONE 20 MG TABLET PO SCH (07:52)
[2021-04-20] MEDS: Insulin DETEMIR 100 UNIT/ML X5UNITS SUBQ SCH (07:53)
[2021-04-20] MEDS: Insulin LISPRO 300 UNITS/3 ML VIAL SUBQ SCH ×2 (07:53→12:57)
[2021-04-20] MEDS ORDERED: Isovue-370 500 ML BOTTLE IVP ONE (08:15)
[2021-04-20 08:26] LABS: Basophils % 0.1 %; Red Blood Count 4.66 M/mcL (4.19-5.50)
[2021-04-20 08:28] LABS: Eosinophils % 0.1 %; Hematocrit 43.7 % (37.5-50.1); Hemoglobin 14.3 g/dL (12.9-16.9); Immature Granulocytes % 0.6 % (0-4); Immature Platelets 10.9 % (1.1-6.1); Lymphocytes # 1.1 K/mcL (0.6-4.6); Mean Corpuscular HGB Conc 32.7 g/dL (31.6-35.5); Mean Corpuscular Hemoglobin 30.7 pg (28.0-33.3); Mean Corpuscular Volume 93.8 fL (83.0-100.0); Mean Platelet Volume 11.7 fL (9.4-12.4); Monocytes # 0.6 K/mcL (0.0-1.3); Monocytes % 5.9 %; Neutrophils # 8.8 K/mcL (1.6-8.9); Red Cell Distribution Width 13.3 % (11.5-14.5); Segmented Neutrophils % 83.3 %; White Blood Count 10.5 K/mcL (4.3-11.1)
[2021-04-20 08:43] LABS: BUN/Creatinine Ratio 41 (6-26); Blood Urea Nitrogen 38 mg/dL (8-23); Calcium 8.4 mg/dL (8.6-10.3); Carbon Dioxide 35 mEq/L (23-29); Chloride 99 mEq/L (98-107); Glucose 70 mg/dL (70-105); Osmolality,Calculated 297 (280-300); Potassium 4.5 mEq/L (3.5-5.1); Sodium 140 mEq/L (136-145); eGFR For African Americans > 60 (> 60); eGFR For Non-African Americans > 60 (> 60)
[2021-04-20 08:59] LABS: Platelet Count 90 K/mcL (140-400)
[2021-04-20 09:12] LABS: Eosinophils % 0.1 %; Immature Granulocytes % 0.5 % (0-4); Red Cell Distribution Width 13.4 % (11.5-14.5)
[2021-04-20 09:13] LABS: Basophils % 0.1 %; Hematocrit 43.3 % (37.5-50.1); Hemoglobin 13.4 g/dL (12.9-16.9); Immature Platelets 13.5 % (1.1-6.1); Lymphocytes # 0.9 K/mcL (0.6-4.6); Lymphocytes % 9.5 %; Mean Corpuscular HGB Conc 30.9 g/dL (31.6-35.5); Mean Corpuscular Hemoglobin 29.5 pg (28.0-33.3); Mean Corpuscular Volume 95.2 fL (83.0-100.0); Mean Platelet Volume 11.5 fL (9.4-12.4); Monocytes # 0.6 K/mcL (0.0-1.3); Monocytes % 6.6 %; Neutrophils # 7.8 K/mcL (1.6-8.9); Red Blood Count 4.55 M/mcL (4.19-5.50); Segmented Neutrophils % 83.2 %; White Blood Count 9.4 K/mcL (4.3-11.1)
[2021-04-20 09:16] LABS: Platelet Count 82 K/mcL (140-400)
[2021-04-20 09:39] LABS: BUN/Creatinine Ratio 39 (6-26); Blood Urea Nitrogen 38 mg/dL (8-23); Calcium 8.6 mg/dL (8.6-10.3); Carbon Dioxide 42 mEq/L (23-29); Chloride 99 mEq/L (98-107); Glucose 67 mg/dL (70-105); Osmolality,Calculated 301 (280-300); Sodium 142 mEq/L (136-145); eGFR For African Americans > 60 (> 60); eGFR For Non-African Americans > 60 (> 60)
[2021-04-21] MEDS: Ipratropium/Albuterol Neb 3 ML IH SCH ×6 (03:37→23:24)
[2021-04-21 04:43] LABS: Basophils % 0.1 %; Hemoglobin 11.9 g/dL (12.9-16.9); Mean Corpuscular HGB Conc 32.2 g/dL (31.6-35.5); Mean Corpuscular Volume 93.2 fL (83.0-100.0); Mean Platelet Volume 11.3 fL (9.4-12.4); Red Cell Distribution Width 13.2 % (11.5-14.5)
[2021-04-21 04:45] LABS: Eosinophils % 0.1 %; Immature Granulocytes % 0.6 % (0-4); Immature Platelets 11.7 % (1.1-6.1); Lymphocytes # 0.6 K/mcL (0.6-4.6); Lymphocytes % 9.1 %; Monocytes # 0.4 K/mcL (0.0-1.3); Monocytes % 6.4 %; Neutrophils # 5.8 K/mcL (1.6-8.9); Red Blood Count 3.97 M/mcL (4.19-5.50); Segmented Neutrophils % 83.7 %; White Blood Count 6.9 K/mcL (4.3-11.1)
[2021-04-21 04:46] LABS: Platelet Count 80 K/mcL (140-400)
[2021-04-21 05:03] LABS: BUN/Creatinine Ratio 36 (6-26); Blood Urea Nitrogen 37 mg/dL (8-23); Calcium 8.3 mg/dL (8.6-10.3); Carbon Dioxide 40 mEq/L (23-29); Chloride 97 mEq/L (98-107); Glucose 105 mg/dL (70-105); Osmolality,Calculated 299 (280-300); Potassium 4.1 mEq/L (3.5-5.1); Sodium 140 mEq/L (136-145); eGFR For African Americans > 60 (> 60); eGFR For Non-African Americans > 60 (> 60)
[2021-04-21] MEDS: Budesonide/Formoterol 160/4.5 1 PUFF INH IH SCH ×2 (07:30→19:55)
[2021-04-21] MEDS: Aspirin Enteric Coated 81 MG Tablet PO SCH (08:02)
[2021-04-21] MEDS: amLODIPine 5 MG TABLET PO SCH (08:03)
[2021-04-21] MEDS: predniSONE 20 MG TABLET PO SCH (08:03)
[2021-04-21] MEDS: levoFLOXacin 750 MG/150 ML 750 MG/150 ML BAG IVPB SCH (08:03)
[2021-04-21] MEDS: Furosemide 20 MG/2 ML VIAL IVP SCH (08:04)
[2021-04-21] MEDS ORDERED: Acetylcysteine 10% 2 ML INHSOL IH ONE (08:37)
[2021-04-21] MEDS: Acetaminophen 325 MG TABLET PO PRN (09:33)
[2021-04-21] MEDS: Acetylcysteine 10% 2 ML INHSOL IH SCH ×2 (15:40→19:55)
[2021-04-21] MEDS: Furosemide 20 MG TABLET PO SCH (20:31)
[2021-04-22] MEDS: Ipratropium/Albuterol Neb 3 ML IH SCH ×6 (04:12→23:26)
[2021-04-22 04:59] LABS: Eosinophils % 0.1 %; Immature Granulocytes % 0.5 % (0-4); Red Cell Distribution Width 13.2 % (11.5-14.5); Segmented Neutrophils % 85.4 %
[2021-04-22 05:00] LABS: Hematocrit 31.6 % (37.5-50.1); Hemoglobin 10.2 g/dL (12.9-16.9); Immature Platelets 10.2 % (1.1-6.1); Lymphocytes # 0.8 K/mcL (0.6-4.6); Lymphocytes % 8.1 %; Mean Corpuscular HGB Conc 32.3 g/dL (31.6-35.5); Mean Corpuscular Hemoglobin 29.9 pg (28.0-33.3); Mean Corpuscular Volume 92.7 fL (83.0-100.0); Mean Platelet Volume 11.4 fL (9.4-12.4); Monocytes # 0.6 K/mcL (0.0-1.3); Monocytes % 5.9 %; Neutrophils # 8.5 K/mcL (1.6-8.9); Red Blood Count 3.41 M/mcL (4.19-5.50)
[2021-04-22 05:09] LABS: Platelet Count 91 K/mcL (140-400)
[2021-04-22 05:18] LABS: BUN/Creatinine Ratio 35 (6-26); Blood Urea Nitrogen 37 mg/dL (8-23); Calcium 7.9 mg/dL (8.6-10.3); Carbon Dioxide 40 mEq/L (23-29); Chloride 97 mEq/L (98-107); Glucose 180 mg/dL (70-105); Osmolality,Calculated 301 (280-300); Potassium 4.2 mEq/L (3.5-5.1); Sodium 139 mEq/L (136-145); eGFR For African Americans > 60 (> 60); eGFR For Non-African Americans > 60 (> 60)
[2021-04-22] MEDS: predniSONE 20 MG TABLET PO SCH (07:08)
[2021-04-22] MEDS: Aspirin Enteric Coated 81 MG Tablet PO SCH (07:08)
[2021-04-22] MEDS: amLODIPine 5 MG TABLET PO SCH (07:08)
[2021-04-22] MEDS: levoFLOXacin 750 MG TABLET PO SCH (07:08)
[2021-04-22] MEDS: Furosemide 20 MG TABLET PO SCH ×2 (07:08→16:45)
[2021-04-22] MEDS: Budesonide/Formoterol 160/4.5 1 PUFF INH IH SCH ×2 (07:40→19:56)
[2021-04-22] MEDS: Acetylcysteine 10% 2 ML INHSOL IH SCH ×2 (15:23→23:26)
[2021-04-23] MEDS: Ipratropium/Albuterol Neb 3 ML IH SCH ×6 (04:14→23:09)
[2021-04-23 05:13] LABS: Eosinophils % 0.1 %; Hematocrit 29.9 % (37.5-50.1); Hemoglobin 9.3 g/dL (12.9-16.9); Immature Granulocytes % 0.7 % (0-4); Lymphocytes # 0.8 K/mcL (0.6-4.6); Lymphocytes % 8.6 %; Mean Corpuscular HGB Conc 31.1 g/dL (31.6-35.5); Mean Corpuscular Hemoglobin 29.5 pg (28.0-33.3); Mean Corpuscular Volume 94.9 fL (83.0-100.0); Mean Platelet Volume 11.3 fL (9.4-12.4); Monocytes # 0.6 K/mcL (0.0-1.3); Monocytes % 5.7 %; Neutrophils # 8.2 K/mcL (1.6-8.9); Platelet Count 102 K/mcL (140-400); Red Blood Count 3.15 M/mcL (4.19-5.50); Red Cell Distribution Width 13.3 % (11.5-14.5); Segmented Neutrophils % 84.9 %; White Blood Count 9.7 K/mcL (4.3-11.1)
[2021-04-23 05:45] LABS: BUN/Creatinine Ratio 31 (6-26); Blood Urea Nitrogen 33 mg/dL (8-23); Carbon Dioxide 40 mEq/L (23-29); Chloride 98 mEq/L (98-107); Glucose 123 mg/dL (70-105); Osmolality,Calculated 299 (280-300); Potassium 3.9 mEq/L (3.5-5.1); Sodium 140 mEq/L (136-145); eGFR For African Americans > 60 (> 60); eGFR For Non-African Americans > 60 (> 60)
[2021-04-23] MEDS: Acetylcysteine 10% 2 ML INHSOL IH SCH ×3 (07:33→23:09)
[2021-04-23] MEDS: Budesonide/Formoterol 160/4.5 1 PUFF INH IH SCH ×2 (07:33→19:45)
[2021-04-23] MEDS: predniSONE 20 MG TABLET PO SCH (08:15)
[2021-04-23] MEDS: Furosemide 20 MG TABLET PO SCH ×2 (08:16→15:27)
[2021-04-23] MEDS: levoFLOXacin 750 MG TABLET PO SCH (08:16)
[2021-04-23] MEDS: Aspirin Enteric Coated 81 MG Tablet PO SCH (08:16)
[2021-04-23] MEDS: amLODIPine 5 MG TABLET PO SCH (08:20)
[2021-04-23] MEDS ORDERED: 0.9 % Sodium Chloride 500 ML IVC ONE (08:28)
[2021-04-23] MEDS: *HR* Rivaroxaban 15 MG TABLET PO SCH (20:28)
[2021-04-24 03:41] LABS: Eosinophils % 0.1 %; Hematocrit 29.2 % (37.5-50.1); Hemoglobin 9.3 g/dL (12.9-16.9); Immature Granulocytes % 0.5 % (0-4); Immature Platelets 8.8 % (1.1-6.1); Lymphocytes # 0.6 K/mcL (0.6-4.6); Lymphocytes % 6.1 %; Mean Corpuscular HGB Conc 31.8 g/dL (31.6-35.5); Mean Corpuscular Hemoglobin 29.9 pg (28.0-33.3); Mean Corpuscular Volume 93.9 fL (83.0-100.0); Mean Platelet Volume 10.7 fL (9.4-12.4); Monocytes # 0.4 K/mcL (0.0-1.3); Monocytes % 4.1 %; Neutrophils # 8.4 K/mcL (1.6-8.9); Platelet Count 101 K/mcL (140-400); Red Blood Count 3.11 M/mcL (4.19-5.50); Red Cell Distribution Width 13.4 % (11.5-14.5); Segmented Neutrophils % 89.2 %; White Blood Count 9.5 K/mcL (4.3-11.1)
[2021-04-24] MEDS: Ipratropium/Albuterol Neb 3 ML IH SCH ×6 (03:45→23:58)
[2021-04-24 04:01] LABS: BUN/Creatinine Ratio 27 (6-26); Blood Urea Nitrogen 27 mg/dL (8-23); Calcium 7.8 mg/dL (8.6-10.3); Carbon Dioxide 33 mEq/L (23-29); Chloride 99 mEq/L (98-107); Glucose 163 mg/dL (70-105); Osmolality,Calculated 293 (280-300); Sodium 137 mEq/L (136-145); eGFR For African Americans > 60 (> 60); eGFR For Non-African Americans > 60 (> 60)
[2021-04-24] MEDS: Budesonide/Formoterol 160/4.5 1 PUFF INH IH SCH ×2 (07:26→20:13)
[2021-04-24] MEDS: Acetylcysteine 10% 2 ML INHSOL IH SCH ×3 (07:29→23:58)
[2021-04-24] MEDS: *HR* Rivaroxaban 15 MG TABLET PO SCH ×2 (08:10→21:19)
[2021-04-24] MEDS: Azithromycin 250 MG TABLET PO SCH (08:10)
[2021-04-24] MEDS: amLODIPine 5 MG TABLET PO SCH (08:10)
[2021-04-24] MEDS: Aspirin Enteric Coated 81 MG Tablet PO SCH (08:10)
[2021-04-24] MEDS: predniSONE 20 MG TABLET PO SCH (08:10)
[2021-04-24] MEDS: Furosemide 20 MG TABLET PO SCH ×2 (08:10→16:48)
[2021-04-24] MEDS: *HR* HYDROcodone/Acet 10/325 mg TABLET PO PRN ×2 (08:46→21:19)
[2021-04-25] MEDS: Ipratropium/Albuterol Neb 3 ML IH SCH ×6 (03:54→23:04)
[2021-04-25] MEDS: Acetylcysteine 10% 2 ML INHSOL IH SCH ×3 (07:15→23:04)
[2021-04-25] MEDS: Budesonide/Formoterol 160/4.5 1 PUFF INH IH SCH ×2 (07:15→20:02)
[2021-04-25] MEDS: Furosemide 20 MG TABLET PO SCH ×2 (07:40→17:23)
[2021-04-25] MEDS: *HR* Rivaroxaban 15 MG TABLET PO SCH ×2 (07:40→21:23)
[2021-04-25] MEDS: Azithromycin 250 MG TABLET PO SCH (07:40)
[2021-04-25] MEDS: amLODIPine 5 MG TABLET PO SCH (07:40)
[2021-04-25] MEDS: Aspirin Enteric Coated 81 MG Tablet PO SCH (07:40)
[2021-04-25] MEDS: predniSONE 20 MG TABLET PO SCH (07:41)
[2021-04-25 10:15] LABS: Basophils % 0.1 %; Hemoglobin 9.3 g/dL (12.9-16.9); Immature Granulocytes % 0.6 % (0-4)
[2021-04-25 10:17] LABS: Hematocrit 28.8 % (37.5-50.1); Immature Platelets 9.1 % (1.1-6.1); Lymphocytes # 0.4 K/mcL (0.6-4.6); Lymphocytes % 2.8 %; Mean Corpuscular HGB Conc 32.3 g/dL (31.6-35.5); Mean Corpuscular Hemoglobin 30.3 pg (28.0-33.3); Mean Corpuscular Volume 93.8 fL (83.0-100.0); Mean Platelet Volume 11.2 fL (9.4-12.4); Monocytes # 0.4 K/mcL (0.0-1.3); Monocytes % 2.4 %; Red Blood Count 3.07 M/mcL (4.19-5.50); Red Cell Distribution Width 13.3 % (11.5-14.5); Segmented Neutrophils % 94.1 %; White Blood Count 14.9 K/mcL (4.3-11.1)
[2021-04-25 10:34] LABS: BUN/Creatinine Ratio 28 (6-26); Blood Urea Nitrogen 26 mg/dL (8-23); Calcium 8.1 mg/dL (8.6-10.3); Carbon Dioxide 36 mEq/L (23-29); Chloride 98 mEq/L (98-107); Glucose 145 mg/dL (70-105); Osmolality,Calculated 289 (280-300); Sodium 136 mEq/L (136-145); eGFR For African Americans > 60 (> 60); eGFR For Non-African Americans > 60 (> 60)
[2021-04-25 10:42] LABS: Platelet Count 93 K/mcL (140-400)
[2021-04-25] MEDS: Acetaminophen 325 MG TABLET PO PRN (21:25)
[2021-04-26] MEDS: Ipratropium/Albuterol Neb 3 ML IH SCH ×6 (03:58→23:34)
[2021-04-26 04:50] LABS: Basophils % 0.1 %; Eosinophils % 0.1 %; Mean Corpuscular Volume 91.4 fL (83.0-100.0); Segmented Neutrophils % 89.7 %
[2021-04-26 04:52] LABS: Hematocrit 27.7 % (37.5-50.1); Immature Granulocytes % 0.7 % (0-4); Immature Platelets 8.1 % (1.1-6.1); Lymphocytes # 1.1 K/mcL (0.6-4.6); Lymphocytes % 6.6 %; Mean Corpuscular HGB Conc 32.5 g/dL (31.6-35.5); Mean Corpuscular Hemoglobin 29.7 pg (28.0-33.3); Monocytes % 2.8 %; Platelet Count 123 K/mcL (140-400); Red Blood Count 3.03 M/mcL (4.19-5.50); Red Cell Distribution Width 13.2 % (11.5-14.5)
[2021-04-26 04:53] LABS: Monocytes # 0.5 K/mcL (0.0-1.3); Neutrophils # 14.4 K/mcL (1.6-8.9)
[2021-04-26 05:03] LABS: BUN/Creatinine Ratio 31 (6-26); Blood Urea Nitrogen 30 mg/dL (8-23); Calcium 8.3 mg/dL (8.6-10.3); Carbon Dioxide 33 mEq/L (23-29); Chloride 99 mEq/L (98-107); Glucose 155 mg/dL (70-105); Osmolality,Calculated 293 (280-300); Potassium 4.1 mEq/L (3.5-5.1); Sodium 137 mEq/L (136-145); eGFR For African Americans > 60 (> 60); eGFR For Non-African Americans > 60 (> 60)
[2021-04-26] MEDS: Aspirin Enteric Coated 81 MG Tablet PO SCH (07:36)
[2021-04-26] MEDS: Azithromycin 250 MG TABLET PO SCH (07:36)
[2021-04-26] MEDS: *HR* Rivaroxaban 15 MG TABLET PO SCH (07:36)
[2021-04-26] MEDS: Furosemide 20 MG TABLET PO SCH ×2 (07:36→16:25)
[2021-04-26] MEDS: amLODIPine 5 MG TABLET PO SCH (07:36)
[2021-04-26] MEDS: predniSONE 20 MG TABLET PO SCH (07:36)
[2021-04-26] MEDS: Budesonide/Formoterol 160/4.5 1 PUFF INH IH SCH ×2 (07:48→19:59)
[2021-04-26] MEDS: Acetylcysteine 10% 2 ML INHSOL IH SCH ×3 (07:49→19:59)
[2021-04-27] MEDS: Ipratropium/Albuterol Neb 3 ML IH SCH ×5 (04:34→20:25)
[2021-04-27] MEDS: *HR* LORazepam 2 MG/ML VIAL IVP PRN (04:50)
[2021-04-27 05:39] LABS: Hematocrit 23.4 % (37.5-50.1); Hemoglobin 7.5 g/dL (12.9-16.9); Mean Corpuscular HGB Conc 32.1 g/dL (31.6-35.5); Mean Corpuscular Hemoglobin 29.9 pg (28.0-33.3); Mean Corpuscular Volume 93.2 fL (83.0-100.0); Red Blood Count 2.51 M/mcL (4.19-5.50)
[2021-04-27 05:41] LABS: Basophils % 0.1 %; Eosinophils % 0.2 %; Immature Granulocytes % 0.3 % (0-4); Immature Platelets 5.8 % (1.1-6.1); Lymphocytes # 0.8 K/mcL (0.6-4.6); Lymphocytes % 7.4 %; Mean Platelet Volume 10.9 fL (9.4-12.4); Monocytes # 0.3 K/mcL (0.0-1.3); Monocytes % 2.9 %; Red Cell Distribution Width 13.2 % (11.5-14.5); Segmented Neutrophils % 89.1 %; White Blood Count 10.6 K/mcL (4.3-11.1)
[2021-04-27 05:42] LABS: Neutrophils # 9.4 K/mcL (1.6-8.9); Platelet Count 97 K/mcL (140-400)
[2021-04-27 05:51] LABS: BUN/Creatinine Ratio 30 (6-26); Blood Urea Nitrogen 28 mg/dL (8-23); Carbon Dioxide 35 mEq/L (23-29); Chloride 98 mEq/L (98-107); Glucose 102 mg/dL (70-105); Osmolality,Calculated 292 (280-300); Potassium 3.8 mEq/L (3.5-5.1); Sodium 138 mEq/L (136-145); eGFR For African Americans > 60 (> 60); eGFR For Non-African Americans > 60 (> 60)
[2021-04-27] MEDS ORDERED: *HR* Propofol 200 MG/20 ML VIAL IVP ONE (07:21)
[2021-04-27] MEDS ORDERED: *HR* FentaNYL (PF) 100 MCG/2 ML VIAL ONE (07:21)
[2021-04-27] MEDS ORDERED: Lidocaine -MPF 2% 5 ML VIAL ONE (07:22)
[2021-04-27] MEDS ORDERED: *HR* Succinylcholine 200 MG/10 ML VIAL IVP ONE (07:23)
[2021-04-27] MEDS ORDERED: Lidocaine -MPF 4% 5 ML AMPUL ONE (07:24)
[2021-04-27] MEDS: Acetylcysteine 10% 2 ML INHSOL IH SCH ×2 (07:25→16:34)
[2021-04-27] MEDS: Budesonide/Formoterol 160/4.5 1 PUFF INH IH SCH ×2 (07:26→20:25)
[2021-04-27] MEDS ORDERED: 0.9 % Sodium Chloride 1,000 ML IVC ONE (07:35)
[2021-04-27] MEDS ORDERED: *HR* FentaNYL (PF) 100 MCG/2 ML VIAL IVP ONE (09:08)
[2021-04-27] MEDS ORDERED: *HR* Midazolam HCl 5 MG/5 ML VIAL IVP ONE (09:08)
[2021-04-27] MEDS ORDERED: Albuterol 2.5 MG/3 ML NEBULIZER IH ONE (09:08)
[2021-04-27] MEDS ORDERED: Lidocaine Viscous Oral Soln 15 ML SOLUTION ONE (09:13)
[2021-04-27] MEDS ORDERED: Ringers Solution, Lactated 1,000 ML IVC SCH (09:15)
[2021-04-27] MEDS: predniSONE 20 MG TABLET PO SCH (09:38)
[2021-04-27] MEDS: Aspirin Enteric Coated 81 MG Tablet PO SCH (09:38)
[2021-04-27] MEDS: Furosemide 20 MG TABLET PO SCH ×2 (09:38→16:52)
[2021-04-27] MEDS: amLODIPine 5 MG TABLET PO SCH (09:38)
[2021-04-27] MEDS: Azithromycin 250 MG TABLET PO SCH (09:39)
[2021-04-27] MEDS: *HR* Rivaroxaban 15 MG TABLET PO SCH (21:29)
[2021-04-28] MEDS: Acetylcysteine 10% 2 ML INHSOL IH SCH ×4 (00:25→23:35)
[2021-04-28] MEDS: Ipratropium/Albuterol Neb 3 ML IH SCH ×7 (00:25→23:35)
[2021-04-28 02:26] LABS: Nucleated Red Blood Cells 0.5 /100 WBC (0); Red Cell Distribution Width 13.2 % (11.5-14.5)
[2021-04-28 02:33] LABS: Basophils % 0.4 %; Eosinophils # 0.1 K/mcL (0.0-0.6); Eosinophils % 0.6 %; Hematocrit 21.5 % (37.5-50.1); Hemoglobin 7.5 g/dL (12.9-16.9); Immature Granulocytes % 2.1 % (0-4); Lymphocytes # 0.6 K/mcL (0.6-4.6); Lymphocytes % 6.8 %; Mean Corpuscular HGB Conc 34.9 g/dL (31.6-35.5); Mean Corpuscular Hemoglobin 31.4 pg (28.0-33.3); Mean Platelet Volume 10.8 fL (9.4-12.4); Monocytes # 0.3 K/mcL (0.0-1.3); Monocytes % 3.5 %; Neutrophils # 7.1 K/mcL (1.6-8.9); Red Blood Count 2.39 M/mcL (4.19-5.50); Segmented Neutrophils % 86.6 %; White Blood Count 8.2 K/mcL (4.3-11.1)
[2021-04-28 02:35] LABS: BUN/Creatinine Ratio 30 (6-26); Blood Urea Nitrogen 24 mg/dL (8-23); Carbon Dioxide 33 mEq/L (23-29); Chloride 101 mEq/L (98-107); Glucose 155 mg/dL (70-105); Osmolality,Calculated 293 (280-300); Potassium 3.8 mEq/L (3.5-5.1); Sodium 138 mEq/L (136-145); eGFR For African Americans > 60 (> 60); eGFR For Non-African Americans > 60 (> 60)
[2021-04-28 02:42] LABS: Platelet Count 91 K/mcL (140-400); Platelet Estimate Decreased (Normal)
[2021-04-28] MEDS: Budesonide/Formoterol 160/4.5 1 PUFF INH IH SCH ×2 (07:17→19:43)
[2021-04-28] MEDS: predniSONE 20 MG TABLET PO SCH (07:22)
[2021-04-28] MEDS: amLODIPine 5 MG TABLET PO SCH (07:22)
[2021-04-28] MEDS: Furosemide 20 MG TABLET PO SCH ×2 (07:22→16:58)
[2021-04-28] MEDS: *HR* Rivaroxaban 15 MG TABLET PO SCH ×2 (07:22→20:48)
[2021-04-28] MEDS: Aspirin Enteric Coated 81 MG Tablet PO SCH (07:22)
[2021-04-29] MEDS: Ipratropium/Albuterol Neb 3 ML IH SCH ×5 (03:41→19:41)
[2021-04-29] MEDS: amLODIPine 5 MG TABLET PO SCH (07:17)
[2021-04-29] MEDS: Aspirin Enteric Coated 81 MG Tablet PO SCH (07:17)
[2021-04-29] MEDS: *HR* Rivaroxaban 15 MG TABLET PO SCH ×2 (07:17→21:17)
[2021-04-29] MEDS: Furosemide 20 MG TABLET PO SCH ×2 (07:17→16:58)
[2021-04-29] MEDS: predniSONE 20 MG TABLET PO SCH (07:18)
[2021-04-29] MEDS: Acetylcysteine 10% 2 ML INHSOL IH SCH ×2 (07:52→16:01)
[2021-04-29] MEDS: Budesonide/Formoterol 160/4.5 1 PUFF INH IH SCH (07:52)
[2021-04-29] MEDS: Acetaminophen 325 MG TABLET PO PRN (17:34)
[2021-04-29] MEDS ORDERED: Ketorolac 15 MG/ML VIAL IVP ONE (20:52)
[2021-04-30] MEDS: Ipratropium/Albuterol Neb 3 ML IH SCH ×7 (00:42→23:44)
[2021-04-30] MEDS: Budesonide/Formoterol 160/4.5 1 PUFF INH IH SCH ×3 (00:43→19:55)
[2021-04-30] MEDS: Acetylcysteine 10% 2 ML INHSOL IH SCH ×4 (03:54→23:44)
[2021-04-30] MEDS: amLODIPine 5 MG TABLET PO SCH (08:04)
[2021-04-30] MEDS: Aspirin Enteric Coated 81 MG Tablet PO SCH (08:04)
[2021-04-30] MEDS: *HR* Rivaroxaban 15 MG TABLET PO SCH ×2 (08:05→20:12)
[2021-04-30] MEDS: predniSONE 20 MG TABLET PO SCH (08:05)
[2021-04-30] MEDS: Furosemide 20 MG TABLET PO SCH ×2 (08:05→18:05)
[2021-04-30] MEDS ORDERED: E-Z-HD (BARIUM SULF) SUSPENSION PO ONE (15:00)
[2021-04-30] MEDS ORDERED: E-Z-PAQUE (BARIUM SULF) SUSP 1 BOTTLE PO ONE (15:00)
[2021-04-30] MEDS: Tobramycin for INHALATION 300 MG/5 ML AMPUL IH SCH ×2 (19:56→20:28)
[2021-04-30] MEDS: Acetaminophen 325 MG TABLET PO PRN (20:12)
[2021-04-30] MEDS ORDERED: Tobramycin for INHALATION 300 MG/5 ML AMPUL IH SCH (22:00)
[2021-05-01] MEDS: *HR* LORazepam 2 MG/ML VIAL IVP PRN (03:25)
[2021-05-01] MEDS: Ipratropium/Albuterol Neb 3 ML IH SCH ×6 (04:01→23:45)
[2021-05-01] MEDS: Budesonide/Formoterol 160/4.5 1 PUFF INH IH SCH ×2 (07:30→20:03)
[2021-05-01] MEDS: Acetylcysteine 10% 2 ML INHSOL IH SCH ×3 (07:30→23:45)
[2021-05-01] MEDS: Aspirin Enteric Coated 81 MG Tablet PO SCH (07:47)
[2021-05-01] MEDS: *HR* Rivaroxaban 15 MG TABLET PO SCH ×2 (07:50→21:35)
[2021-05-01] MEDS: amLODIPine 5 MG TABLET PO SCH (07:50)
[2021-05-01] MEDS: predniSONE 20 MG TABLET PO SCH (07:50)
[2021-05-01] MEDS: Furosemide 20 MG TABLET PO SCH ×2 (07:50→21:12)
[2021-05-01] MEDS: Tobramycin for INHALATION 300 MG/5 ML AMPUL IH SCH ×2 (11:27→22:35)
[2021-05-01 21:34] LABS: Hematocrit 19.6 % (37.5-50.1); Hemoglobin 6.4 g/dL (12.9-16.9); Mean Corpuscular HGB Conc 32.7 g/dL (31.6-35.5)
[2021-05-01 21:36] LABS: Immature Granulocytes % 0.4 % (0-4); Lymphocytes # 0.3 K/mcL (0.6-4.6); Lymphocytes % 4.6 %; Mean Platelet Volume 10.2 fL (9.4-12.4); Monocytes # 0.3 K/mcL (0.0-1.3); Monocytes % 3.7 %; Neutrophils # 6.1 K/mcL (1.6-8.9); Platelet Count 84 K/mcL (140-400); Red Blood Count 2.13 M/mcL (4.19-5.50); Red Cell Distribution Width 13.5 % (11.5-14.5); Segmented Neutrophils % 91.3 %; White Blood Count 6.7 K/mcL (4.3-11.1)
[2021-05-01 21:51] LABS: BUN/Creatinine Ratio 40 (6-26); Blood Urea Nitrogen 38 mg/dL (8-23); Calcium 8.5 mg/dL (8.6-10.3); Carbon Dioxide 37 mEq/L (23-29); Chloride 96 mEq/L (98-107); Glucose 198 mg/dL (70-105); Osmolality,Calculated 303 (280-300); Potassium 4.1 mEq/L (3.5-5.1); Sodium 139 mEq/L (136-145); eGFR For African Americans > 60 (> 60); eGFR For Non-African Americans > 60 (> 60)
[2021-05-02] MEDS ORDERED: 0.9 % Sodium Chloride 250 ML ONE ×2 (02:09→20:41)
[2021-05-02] MEDS: Ipratropium/Albuterol Neb 3 ML IH SCH ×6 (03:55→23:29)
[2021-05-02] MEDS ORDERED: *HR* LORazepam 2 MG/ML VIAL IVP PRN (06:31)
[2021-05-02] MEDS ORDERED: *HR* Dextrose 50 % in Water (Vial) 50 ML VIAL IVP PRN (06:31)
[2021-05-02] MEDS ORDERED: Naloxone 0.4 MG/ML INJ IVP PRN (06:31)
[2021-05-02] MEDS ORDERED: Acetaminophen 325 MG TABLET PO PRN (06:31)
[2021-05-02] MEDS ORDERED: D5% in Water 1,000 ML IVC PRN (06:31)
[2021-05-02] MEDS ORDERED: Ipratropium/Albuterol Neb 3 ML IH PRN (06:31)
[2021-05-02] MEDS ORDERED: Dextrose Gel 15 GM/37.5 ML TUBE PO PRN ×2 (06:31)
[2021-05-02] MEDS ORDERED: Ondansetron 4 MG/2 ML VIAL IVP PRN (06:31)
[2021-05-02] MEDS ORDERED: Saline Nasal Spray 44 ML BOTTLE NS PRN (06:31)
[2021-05-02] MEDS: Budesonide/Formoterol 160/4.5 1 PUFF INH IH SCH ×2 (07:33→19:48)
[2021-05-02] MEDS: Acetylcysteine 10% 2 ML INHSOL IH SCH ×3 (07:33→23:29)
[2021-05-02] MEDS: Furosemide 20 MG TABLET PO SCH ×2 (08:34→15:31)
[2021-05-02] MEDS: Aspirin Enteric Coated 81 MG Tablet PO SCH (08:34)
[2021-05-02] MEDS ORDERED: *HR* Rivaroxaban 15 MG TABLET PO SCH (09:00)
[2021-05-02] MEDS ORDERED: predniSONE 5 MG TABLET PO SCH (09:00)
[2021-05-02] MEDS ORDERED: amLODIPine 5 MG TABLET PO SCH (09:00)
[2021-05-02] MEDS ORDERED: Tobramycin for INHALATION 300 MG/5 ML AMPUL IH SCH (10:00)
[2021-05-02 10:42] LABS: BUN/Creatinine Ratio 32 (6-26); Blood Urea Nitrogen 32 mg/dL (8-23); Calcium 8.4 mg/dL (8.6-10.3); Carbon Dioxide 38 mEq/L (23-29); Chloride 98 mEq/L (98-107); Glucose 184 mg/dL (70-105); Osmolality,Calculated 298 (280-300); Potassium 4.1 mEq/L (3.5-5.1); Sodium 138 mEq/L (136-145); eGFR For African Americans > 60 (> 60); eGFR For Non-African Americans > 60 (> 60)
[2021-05-02 12:15] LABS: Hematocrit 23.5 % (37.5-50.1); Hemoglobin 7.8 g/dL (12.9-16.9); Mean Corpuscular HGB Conc 33.2 g/dL (31.6-35.5); Mean Corpuscular Hemoglobin 30.1 pg (28.0-33.3); Mean Corpuscular Volume 90.7 fL (83.0-100.0); Mean Platelet Volume 9.9 fL (9.4-12.4); Red Blood Count 2.59 M/mcL (4.19-5.50); Red Cell Distribution Width 13.6 % (11.5-14.5); White Blood Count 7.1 K/mcL (4.3-11.1)
[2021-05-02 12:17] LABS: Platelet Count 86 K/mcL (140-400)
[2021-05-02] MEDS: Insulin LISPRO 300 UNITS/3 ML VIAL SUBQ SCH (16:30)
[2021-05-02] MEDS ORDERED: *HR* Rocuronium Bromide 50 MG/5 ML VIAL ONE (17:24)
[2021-05-02] MEDS ORDERED: *HR* Succinylcholine 200 MG/10 ML VIAL IVP ONE (17:24)
[2021-05-02] MEDS ORDERED: Lidocaine -MPF 2% 2 ML VIAL ONE (17:24)
[2021-05-02] MEDS ORDERED: Ondansetron 4 MG/2 ML VIAL ONE (17:24)
[2021-05-02] MEDS ORDERED: *HR* Propofol 200 MG/20 ML VIAL IVP ONE (17:25)
[2021-05-02] MEDS ORDERED: *HR* FentaNYL (PF) 100 MCG/2 ML VIAL ONE (17:25)
[2021-05-02] MEDS ORDERED: CefOXitin 1,000 MG VIAL ONE (17:25)
[2021-05-02] MEDS ORDERED: *HR* Midazolam HCl 2 MG/2 ML VIAL ONE (17:25)
[2021-05-02] MEDS ORDERED: Lidocaine HCL 4 ML Topical Solution (Laryng-O-Jet Kit Sterile Pak) TP ONE (17:28)
[2021-05-02] MEDS ORDERED: Albumin Human 5% 12.5 GM/250 ML IV.SOLN ONE (17:32)
[2021-05-02] MEDS ORDERED: *HR* Vasopressin 20 UNIT/ML VIAL ONE (17:33)
[2021-05-02] MEDS: predniSONE 10 MG TABLET PO SCH (17:43)
[2021-05-02] MEDS ORDERED: *HR* Midazolam HCl 5 MG/5 ML VIAL IVP ONE (19:14)
[2021-05-02] MEDS ORDERED: Artificial Tears SOLN 15 ML BOTTLE BOTH EYES PRN (19:47)
[2021-05-02] MEDS: Artificial Tears SOLN 15 ML BOTTLE BOTH EYES SCH (20:08)
[2021-05-02] MEDS: Chlorhexidine Rinse 15 ML MOUTHWASH MM SCH (20:08)
[2021-05-02 20:26] LABS: Mean Platelet Volume 9.9 fL (9.4-12.4); Red Cell Distribution Width 13.8 % (11.5-14.5)
[2021-05-02 20:27] LABS: VBG Ionized Calcium 1.16 mmol/L (1.15-1.35)
[2021-05-02 20:27] LABS: Hematocrit 21.4 % (37.5-50.1); Hemoglobin 6.9 g/dL (12.9-16.9); Immature Granulocytes % 1.4 % (0-4); Immature Platelets 4.7 % (1.1-6.1); Lymphocytes # 0.3 K/mcL (0.6-4.6); Mean Corpuscular HGB Conc 32.2 g/dL (31.6-35.5); Mean Corpuscular Hemoglobin 29.6 pg (28.0-33.3); Mean Corpuscular Volume 91.8 fL (83.0-100.0); Monocytes # 0.2 K/mcL (0.0-1.3); Monocytes % 4.3 %; Red Blood Count 2.33 M/mcL (4.19-5.50); Segmented Neutrophils % 87.3 %; White Blood Count 4.4 K/mcL (4.3-11.1)
[2021-05-02 20:29] LABS: Neutrophils # 3.8 K/mcL (1.6-8.9); Platelet Count 86 K/mcL (140-400)
[2021-05-02 20:32] LABS: ABG Base Excess 8 mEq/L (-2 to 3); ABG HCO3 35 mEq/L (21-27); ABG Oxygen Saturation 90 % (95-98); ABG PCO2 61 mmHg (35-45); ABG PH 7.37 pH Units (7.32-7.45); ABG PO2 64 mmHg (85-104); ABG TCO2 37 mEq/L (20-26); Blood Gas VT 500 cc
[2021-05-02 20:36] LABS: INR 1.8
[2021-05-02 20:45] LABS: Alanine Aminotransferase 21 Units/L (7-52); Albumin 2.9 g/dL (3.5-5.7); Albumin/Globulin Ratio 1.5 (1.1-2.2); Alkaline Phosphatase 54 Units/L (34-104); Aspartate Amino Transferase 10 Units/L (13-39); BUN/Creatinine Ratio 30 (6-26); Bilirubin,Total 1.3 mg/dL (0.3-1.0); Blood Urea Nitrogen 27 mg/dL (8-23); Calcium 8.1 mg/dL (8.6-10.3); Carbon Dioxide 36 mEq/L (23-29); Chloride 99 mEq/L (98-107); Globulin 1.9 g/dL (2.4-3.5); Glucose 89 mg/dL (70-105); Magnesium 1.9 mg/dL (1.6-2.6); Osmolality,Calculated 293 (280-300); Phosphorous 3.2 mg/dL (2.7-4.5); Potassium 3.8 mEq/L (3.5-5.1); Sodium 139 mEq/L (136-145); Total Protein 4.8 g/dL (6.4-8.9); eGFR For African Americans > 60 (> 60); eGFR For Non-African Americans > 60 (> 60)
[2021-05-02] MEDS ORDERED: Insulin LISPRO 300 UNITS/3 ML VIAL SUBQ SCH (21:00)
[2021-05-02] MEDS: FentaNYL (PF) 1,000 MCG/100 ML IV.SOLN IVC SCH (21:00)
[2021-05-03] MEDS: Artificial Tears SOLN 15 ML BOTTLE BOTH EYES SCH ×5 (00:15→15:28)
[2021-05-03] MEDS ORDERED: 0.9 % Sodium Chloride 250 ML ONE (00:47)
[2021-05-03] MEDS: Ipratropium/Albuterol Neb 3 ML IH SCH ×6 (03:20→23:35)
[2021-05-03 03:56] LABS: ABG Base Excess 6 mEq/L (-2 to 3); ABG HCO3 33 mEq/L (21-27); ABG Oxygen Saturation 97 % (95-98); ABG PCO2 61 mmHg (35-45); ABG PH 7.35 pH Units (7.32-7.45); ABG PO2 101 mmHg (85-104); ABG TCO2 35 mEq/L (20-26); Blood Gas VT 500 cc
[2021-05-03] MEDS: FentaNYL (PF) 1,000 MCG/100 ML IV.SOLN IVC SCH (05:21)
[2021-05-03 06:02] LABS: Mean Platelet Volume 10.4 fL (9.4-12.4)
[2021-05-03 06:04] LABS: Hematocrit 27.5 % (37.5-50.1); Immature Platelets 4.5 % (1.1-6.1); Mean Corpuscular HGB Conc 32.7 g/dL (31.6-35.5); Mean Corpuscular Hemoglobin 28.8 pg (28.0-33.3); Mean Corpuscular Volume 87.9 fL (83.0-100.0); Red Blood Count 3.13 M/mcL (4.19-5.50); White Blood Count 5.2 K/mcL (4.3-11.1)
[2021-05-03 06:07] LABS: INR 1.3; Prothrombin Time 15.1 Seconds (9.4-12.1)
[2021-05-03 06:19] LABS: Alanine Aminotransferase 20 Units/L (7-52); Albumin 2.9 g/dL (3.5-5.7); Albumin/Globulin Ratio 1.5 (1.1-2.2); Alkaline Phosphatase 55 Units/L (34-104); Aspartate Amino Transferase 10 Units/L (13-39); BUN/Creatinine Ratio 30 (6-26); Bilirubin,Direct 0.6 mg/dL (0.0-0.2); Bilirubin,Indirect 0.8 mg/dL (0.0-1.0); Bilirubin,Total 1.4 mg/dL (0.3-1.0); Blood Urea Nitrogen 36 mg/dL (8-23); Carbon Dioxide 35 mEq/L (23-29); Chloride 99 mEq/L (98-107); Glucose 174 mg/dL (70-105); Magnesium 2.1 mg/dL (1.6-2.6); Osmolality,Calculated 301 (280-300); Potassium 4.5 mEq/L (3.5-5.1); Sodium 139 mEq/L (136-145); Total Protein 4.9 g/dL (6.4-8.9); eGFR For African Americans > 60 (> 60); eGFR For Non-African Americans 58 (> 60)
[2021-05-03 06:48] LABS: VBG Ionized Calcium 1.12 mmol/L (1.15-1.35)
[2021-05-03] MEDS ORDERED: Calcium Gluconate 1gm/50mL 1 GM/50 ML BAG IVPB PRN (07:16)
[2021-05-03] MEDS: Budesonide/Formoterol 160/4.5 1 PUFF INH IH SCH ×2 (07:19→20:01)
[2021-05-03] MEDS: Acetylcysteine 10% 2 ML INHSOL IH SCH ×3 (07:19→23:35)
[2021-05-03] MEDS: Aspirin Enteric Coated 81 MG Tablet PO SCH (07:27)
[2021-05-03] MEDS: predniSONE 10 MG TABLET PO SCH (07:27)
[2021-05-03] MEDS: Furosemide 20 MG TABLET PO SCH ×2 (07:27→15:57)
[2021-05-03] MEDS: Insulin LISPRO 300 UNITS/3 ML VIAL SUBQ SCH ×5 (07:38→23:43)
[2021-05-03] MEDS: Chlorhexidine Rinse 15 ML MOUTHWASH MM SCH ×2 (07:39→20:10)
[2021-05-03 08:53] LABS: Hematocrit 28.7 % (37.5-50.1); Hemoglobin 9.4 g/dL (12.9-16.9); Immature Granulocytes % 0.9 % (0-4); Immature Platelets 4.6 % (1.1-6.1); Lymphocytes # 0.3 K/mcL (0.6-4.6); Lymphocytes % 5.2 %; Mean Corpuscular HGB Conc 32.8 g/dL (31.6-35.5); Mean Corpuscular Hemoglobin 28.7 pg (28.0-33.3); Mean Corpuscular Volume 87.5 fL (83.0-100.0); Mean Platelet Volume 10.6 fL (9.4-12.4); Monocytes # 0.3 K/mcL (0.0-1.3); Monocytes % 4.5 %; Neutrophils # 5.2 K/mcL (1.6-8.9); Red Blood Count 3.28 M/mcL (4.19-5.50); Red Cell Distribution Width 16.3 % (11.5-14.5); Segmented Neutrophils % 89.4 %; White Blood Count 5.8 K/mcL (4.3-11.1)
[2021-05-03 08:54] LABS: Platelet Count 90 K/mcL (140-400)
[2021-05-03] MEDS ORDERED: Pantoprazole 40 MG VIAL IVP SCH (09:00)
[2021-05-03 09:08] LABS: Blood Urea Nitrogen 36 mg/dL (8-23); Carbon Dioxide 30 mEq/L (23-29); Chloride 101 mEq/L (98-107); Glucose 164 mg/dL (70-105); Osmolality,Calculated 302 (280-300); Potassium 4.7 mEq/L (3.5-5.1); Sodium 140 mEq/L (136-145)
[2021-05-03 09:45] LABS: BUN/Creatinine Ratio 32 (6-26); eGFR For African Americans > 60 (> 60); eGFR For Non-African Americans > 60 (> 60)
[2021-05-03 11:47] LABS: Phosphorous 5.6 mg/dL (2.7-4.5); Triglycerides 89 mg/dL (< 150)
[2021-05-03] MEDS ORDERED: Lidocaine -MPF 1% 5 ML AMPUL INFILT ONE (12:48)
[2021-05-03] MEDS ORDERED: D10% in Water 500 ML IVC PRN (13:36)
[2021-05-03 14:22] LABS: Mean Platelet Volume 10.3 fL (9.4-12.4); White Blood Count 5.6 K/mcL (4.3-11.1)
[2021-05-03 14:24] LABS: Hemoglobin 8.4 g/dL (12.9-16.9); Immature Granulocytes % 0.7 % (0-4); Lymphocytes # 0.4 K/mcL (0.6-4.6); Lymphocytes % 7.1 %; Mean Corpuscular HGB Conc 32.3 g/dL (31.6-35.5); Mean Corpuscular Hemoglobin 28.2 pg (28.0-33.3); Mean Corpuscular Volume 87.2 fL (83.0-100.0); Monocytes # 0.3 K/mcL (0.0-1.3); Monocytes % 5.2 %; Neutrophils # 4.9 K/mcL (1.6-8.9); Platelet Count 101 K/mcL (140-400); Red Blood Count 2.98 M/mcL (4.19-5.50); Red Cell Distribution Width 16.4 % (11.5-14.5)
[2021-05-03] MEDS: Pantoprazole 40 MG VIAL IVP SCH (16:59)
[2021-05-03] MEDS ORDERED: Clinimix 5%-20% SOLUTION 2,000 ML with MVI, adult with vitamin K 10 ML, Sodium Phosph... IVC SCH (17:00)
[2021-05-03 20:15] LABS: Hemoglobin 7.8 g/dL (12.9-16.9)
[2021-05-04] MEDS: Ipratropium/Albuterol Neb 3 ML IH SCH ×6 (03:52→23:34)
[2021-05-04] MEDS: Insulin LISPRO 300 UNITS/3 ML VIAL SUBQ SCH ×5 (04:00→19:47)
[2021-05-04 04:18] LABS: Eosinophils % 0.2 %; Hematocrit 21.5 % (37.5-50.1); Hemoglobin 6.9 g/dL (12.9-16.9); Immature Granulocytes % 0.7 % (0-4); Lymphocytes # 0.5 K/mcL (0.6-4.6); Lymphocytes % 11.6 %; Mean Corpuscular HGB Conc 32.1 g/dL (31.6-35.5); Mean Corpuscular Hemoglobin 28.5 pg (28.0-33.3); Mean Corpuscular Volume 88.8 fL (83.0-100.0); Mean Platelet Volume 10.2 fL (9.4-12.4); Monocytes # 0.3 K/mcL (0.0-1.3); Monocytes % 6.4 %; Neutrophils # 3.6 K/mcL (1.6-8.9); Red Blood Count 2.42 M/mcL (4.19-5.50); Segmented Neutrophils % 81.1 %; White Blood Count 4.4 K/mcL (4.3-11.1)
[2021-05-04 04:20] LABS: Platelet Count 94 K/mcL (140-400)
[2021-05-04 04:29] LABS: BUN/Creatinine Ratio 38 (6-26); Blood Urea Nitrogen 41 mg/dL (8-23); Carbon Dioxide 37 mEq/L (23-29); Chloride 104 mEq/L (98-107); Glucose 168 mg/dL (70-105); Magnesium 2.2 mg/dL (1.6-2.6); Osmolality,Calculated 310 (280-300); Phosphorous 2.8 mg/dL (2.7-4.5); Potassium 3.8 mEq/L (3.5-5.1); Sodium 143 mEq/L (136-145); eGFR For African Americans > 60 (> 60); eGFR For Non-African Americans > 60 (> 60)
[2021-05-04] MEDS ORDERED: 0.9 % Sodium Chloride 250 ML IVC SCH ×2 (05:30→09:02)
[2021-05-04] MEDS: Pantoprazole 40 MG VIAL IVP SCH ×2 (06:03→17:35)
[2021-05-04] MEDS ORDERED: 0.9 % Sodium Chloride 250 ML ONE (06:26)
[2021-05-04] MEDS: Budesonide/Formoterol 160/4.5 1 PUFF INH IH SCH ×3 (07:48→19:50)
[2021-05-04] MEDS: Acetylcysteine 10% 2 ML INHSOL IH SCH ×3 (07:48→19:49)
[2021-05-04] MEDS: Furosemide 20 MG TABLET PO SCH ×2 (08:35→16:08)
[2021-05-04] MEDS: Chlorhexidine Rinse 15 ML MOUTHWASH MM SCH (08:36)
[2021-05-04] MEDS ORDERED: D10% in Water 500 ML IVC PRN (09:02)
[2021-05-04] MEDS ORDERED: Saline Nasal Spray 44 ML BOTTLE NS PRN (09:02)
[2021-05-04] MEDS ORDERED: *HR* LORazepam 2 MG/ML VIAL IVP PRN (09:02)
[2021-05-04] MEDS ORDERED: Dextrose Gel 15 GM/37.5 ML TUBE PO PRN ×2 (09:02)
[2021-05-04] MEDS ORDERED: D5% in Water 1,000 ML IVC PRN (09:02)
[2021-05-04] MEDS ORDERED: Naloxone 0.4 MG/ML INJ IVP PRN (09:02)
[2021-05-04] MEDS ORDERED: Ondansetron 4 MG/2 ML VIAL IVP PRN (09:02)
[2021-05-04] MEDS ORDERED: Acetaminophen 325 MG TABLET PO PRN (09:02)
[2021-05-04] MEDS ORDERED: *HR* Dextrose 50 % in Water (Vial) 50 ML VIAL IVP PRN (09:02)
[2021-05-04] MEDS ORDERED: Clinimix 5%-20% SOLUTION 2,000 ML with MVI, adult with vitamin K 10 ML, Sodium Phosph... IVC SCH (09:02)
[2021-05-04 10:04] LABS: Hematocrit 23.7 % (37.5-50.1); Hemoglobin 7.7 g/dL (12.9-16.9)
[2021-05-04] MEDS: Calcium Gluconate 1gm/50mL 1 GM/50 ML BAG IVPB SCH ×2 (13:37→14:42)
[2021-05-04 15:18] LABS: Hematocrit 27.3 % (37.5-50.1); Hemoglobin 8.9 g/dL (12.9-16.9)
[2021-05-04] MEDS ORDERED: Clinimix E 5%-15% SOLUTION 2,000 ML with MVI, adult with vitamin K 10 ML IVC SCH (17:00)
[2021-05-04] MEDS ORDERED: *HR* Rivaroxaban 15 MG TABLET PO SCH (21:00)
[2021-05-05] MEDS: Insulin LISPRO 300 UNITS/3 ML VIAL SUBQ SCH ×6 (00:56→20:50)
[2021-05-05] MEDS: Ipratropium/Albuterol Neb 3 ML IH SCH ×5 (03:31→20:19)
[2021-05-05 04:21] LABS: BUN/Creatinine Ratio 37 (6-26); Blood Urea Nitrogen 29 mg/dL (8-23); Calcium 8.1 mg/dL (8.6-10.3); Carbon Dioxide 38 mEq/L (23-29); Chloride 106 mEq/L (98-107); Glucose 117 mg/dL (70-105); Magnesium 2.1 mg/dL (1.6-2.6); Osmolality,Calculated 307 (280-300); Phosphorous 1.5 mg/dL (2.7-4.5); Potassium 3.7 mEq/L (3.5-5.1); Sodium 145 mEq/L (136-145); eGFR For African Americans > 60 (> 60); eGFR For Non-African Americans > 60 (> 60)
[2021-05-05 05:42] LABS: Basophils % 0.2 %; Eosinophils % 0.9 %; Hematocrit 28.3 % (37.5-50.1); Hemoglobin 9.2 g/dL (12.9-16.9); Immature Granulocytes % 0.9 % (0-4); Lymphocytes # 0.8 K/mcL (0.6-4.6); Lymphocytes % 17.2 %; Mean Corpuscular HGB Conc 32.5 g/dL (31.6-35.5); Mean Corpuscular Hemoglobin 29.4 pg (28.0-33.3); Mean Corpuscular Volume 90.4 fL (83.0-100.0); Mean Platelet Volume 10.1 fL (9.4-12.4); Monocytes # 0.3 K/mcL (0.0-1.3); Monocytes % 7.6 %; Neutrophils # 3.2 K/mcL (1.6-8.9); Red Blood Count 3.13 M/mcL (4.19-5.50); Red Cell Distribution Width 15.2 % (11.5-14.5); Segmented Neutrophils % 73.2 %; White Blood Count 4.4 K/mcL (4.3-11.1)
[2021-05-05 05:43] LABS: Platelet Count 98 K/mcL (140-400)
[2021-05-05] MEDS: Pantoprazole 40 MG VIAL IVP SCH (06:22)
[2021-05-05] MEDS: Acetylcysteine 10% 2 ML INHSOL IH SCH ×2 (07:51→16:11)
[2021-05-05] MEDS: Budesonide/Formoterol 160/4.5 1 PUFF INH IH SCH ×2 (07:51→20:18)
[2021-05-05] MEDS: Furosemide 20 MG TABLET PO SCH ×2 (08:56→17:01)
[2021-05-05] MEDS: predniSONE 10 MG TABLET PO SCH (08:56)
[2021-05-05] MEDS: Aspirin Enteric Coated 81 MG Tablet PO SCH (08:58)
[2021-05-05] MEDS ORDERED: predniSONE 10 MG TABLET PO SCH (09:00)
[2021-05-05] MEDS ORDERED: Aspirin Enteric Coated 81 MG Tablet PO SCH (09:00)
[2021-05-05] MEDS ORDERED: Clinimix E 5%-15% SOLUTION 2,000 ML with MVI, adult with vitamin K 10 ML IVC SCH (17:00)
[2021-05-05] MEDS ORDERED: Potassium Phosphate 44 MEQ in 0.9 % Sodium Chloride 250 ML IVPB ONE (19:07)
[2021-05-06] MEDS: Ipratropium/Albuterol Neb 3 ML IH SCH ×6 (00:02→20:37)
[2021-05-06] MEDS: Acetylcysteine 10% 2 ML INHSOL IH SCH ×3 (00:02→15:22)
[2021-05-06] MEDS: Insulin LISPRO 300 UNITS/3 ML VIAL SUBQ SCH ×6 (00:54→20:52)
[2021-05-06 06:38] LABS: Hematocrit 28.8 % (37.5-50.1); Hemoglobin 9.2 g/dL (12.9-16.9); Mean Corpuscular HGB Conc 31.9 g/dL (31.6-35.5); Mean Corpuscular Volume 90.9 fL (83.0-100.0); Mean Platelet Volume 9.7 fL (9.4-12.4); Platelet Count 103 K/mcL (140-400); Red Blood Count 3.17 M/mcL (4.19-5.50); Red Cell Distribution Width 14.6 % (11.5-14.5); White Blood Count 4.7 K/mcL (4.3-11.1)
[2021-05-06 06:53] LABS: BUN/Creatinine Ratio 45 (6-26); Blood Urea Nitrogen 29 mg/dL (8-23); Calcium 7.8 mg/dL (8.6-10.3); Carbon Dioxide 36 mEq/L (23-29); Chloride 104 mEq/L (98-107); Glucose 121 mg/dL (70-105); Magnesium 1.9 mg/dL (1.6-2.6); Osmolality,Calculated 303 (280-300); Phosphorous 2.7 mg/dL (2.7-4.5); Potassium 3.8 mEq/L (3.5-5.1); Sodium 143 mEq/L (136-145); eGFR For African Americans > 60 (> 60); eGFR For Non-African Americans > 60 (> 60)
[2021-05-06] MEDS: Budesonide/Formoterol 160/4.5 1 PUFF INH IH SCH ×2 (07:22→20:37)
[2021-05-06] MEDS: Furosemide 20 MG TABLET PO SCH ×2 (09:11→17:09)
[2021-05-06] MEDS: predniSONE 10 MG TABLET PO SCH (09:11)
[2021-05-06] MEDS: Aspirin Enteric Coated 81 MG Tablet PO SCH (09:11)
[2021-05-06] MEDS ORDERED: Clinimix E 5%-15% SOLUTION 2,000 ML with MVI, adult with vitamin K 10 ML IVC SCH (17:00)
[2021-05-07] MEDS: Acetylcysteine 10% 2 ML INHSOL IH SCH ×4 (00:14→20:27)
[2021-05-07] MEDS: Ipratropium/Albuterol Neb 3 ML IH SCH ×6 (00:14→20:18)
[2021-05-07] MEDS: Insulin LISPRO 300 UNITS/3 ML VIAL SUBQ SCH ×6 (00:55→20:00)
[2021-05-07 02:19] LABS: BUN/Creatinine Ratio 44 (6-26); Blood Urea Nitrogen 31 mg/dL (8-23); Calcium 7.7 mg/dL (8.6-10.3); Carbon Dioxide 33 mEq/L (23-29); Chloride 104 mEq/L (98-107); Glucose 134 mg/dL (70-105); Magnesium 2.1 mg/dL (1.6-2.6); Osmolality,Calculated 301 (280-300); Phosphorous 2.3 mg/dL (2.7-4.5); Potassium 3.7 mEq/L (3.5-5.1); Sodium 141 mEq/L (136-145); eGFR For African Americans > 60 (> 60); eGFR For Non-African Americans > 60 (> 60)
[2021-05-07] MEDS: Budesonide/Formoterol 160/4.5 1 PUFF INH IH SCH ×2 (07:15→20:18)
[2021-05-07] MEDS: Aspirin Enteric Coated 81 MG Tablet PO SCH (08:59)
[2021-05-07] MEDS: predniSONE 10 MG TABLET PO SCH (09:00)
[2021-05-07] MEDS: Furosemide 20 MG TABLET PO SCH ×2 (09:00→17:16)
[2021-05-07 10:00] LABS: Basophils % 0.2 %; Eosinophils # 0.1 K/mcL (0.0-0.6); Eosinophils % 1.1 %; Hemoglobin 9.4 g/dL (12.9-16.9); Immature Granulocytes % 2.5 % (0-4); Lymphocytes # 0.8 K/mcL (0.6-4.6); Mean Corpuscular HGB Conc 32.4 g/dL (31.6-35.5); Mean Corpuscular Hemoglobin 29.7 pg (28.0-33.3); Mean Corpuscular Volume 91.8 fL (83.0-100.0); Mean Platelet Volume 10.3 fL (9.4-12.4); Monocytes # 0.4 K/mcL (0.0-1.3); Monocytes % 8.6 %; Neutrophils # 3.1 K/mcL (1.6-8.9); Platelet Count 116 K/mcL (140-400); Red Blood Count 3.16 M/mcL (4.19-5.50); Red Cell Distribution Width 14.2 % (11.5-14.5); Segmented Neutrophils % 70.6 %; White Blood Count 4.4 K/mcL (4.3-11.1)
[2021-05-07] MEDS ORDERED: Potassium Phosphate 44 MEQ in 0.9 % Sodium Chloride 250 ML IVPB ONE (13:26)
[2021-05-07] MEDS ORDERED: Clinimix E 5%-15% SOLUTION 2,000 ML with MVI, adult with vitamin K 10 ML IVC SCH (17:00)
[2021-05-08] MEDS: Insulin LISPRO 300 UNITS/3 ML VIAL SUBQ SCH ×6 (00:02→20:49)
[2021-05-08] MEDS: Ipratropium/Albuterol Neb 3 ML IH SCH ×6 (00:05→20:31)
[2021-05-08 06:32] LABS: Hematocrit 26.7 % (37.5-50.1); Hemoglobin 8.9 g/dL (12.9-16.9); Mean Corpuscular HGB Conc 33.3 g/dL (31.6-35.5); Mean Corpuscular Hemoglobin 30.4 pg (28.0-33.3); Mean Corpuscular Volume 91.1 fL (83.0-100.0); Mean Platelet Volume 10.2 fL (9.4-12.4); Platelet Count 112 K/mcL (140-400); Red Blood Count 2.93 M/mcL (4.19-5.50); Red Cell Distribution Width 14.3 % (11.5-14.5); White Blood Count 3.4 K/mcL (4.3-11.1)
[2021-05-08 06:48] LABS: BUN/Creatinine Ratio 41 (6-26); Blood Urea Nitrogen 27 mg/dL (8-23); Calcium 7.7 mg/dL (8.6-10.3); Carbon Dioxide 33 mEq/L (23-29); Chloride 106 mEq/L (98-107); Glucose 97 mg/dL (70-105); Osmolality,Calculated 297 (280-300); Potassium 3.6 mEq/L (3.5-5.1); Sodium 141 mEq/L (136-145); eGFR For African Americans > 60 (> 60); eGFR For Non-African Americans > 60 (> 60)
[2021-05-08] MEDS: Acetylcysteine 10% 2 ML INHSOL IH SCH ×3 (07:30→20:31)
[2021-05-08] MEDS: Budesonide/Formoterol 160/4.5 1 PUFF INH IH SCH ×2 (07:30→20:31)
[2021-05-08] MEDS: Aspirin Enteric Coated 81 MG Tablet PO SCH (08:27)
[2021-05-08] MEDS: predniSONE 10 MG TABLET PO SCH (08:27)
[2021-05-08] MEDS: Furosemide 20 MG TABLET PO SCH ×2 (08:27→17:14)
[2021-05-09] MEDS: Ipratropium/Albuterol Neb 3 ML IH SCH ×7 (00:08→23:34)
[2021-05-09 06:27] LABS: Hematocrit 26.8 % (37.5-50.1); Hemoglobin 8.8 g/dL (12.9-16.9); Mean Corpuscular HGB Conc 32.8 g/dL (31.6-35.5); Mean Corpuscular Hemoglobin 30.1 pg (28.0-33.3); Mean Corpuscular Volume 91.8 fL (83.0-100.0); Mean Platelet Volume 9.7 fL (9.4-12.4); Platelet Count 135 K/mcL (140-400); Red Blood Count 2.92 M/mcL (4.19-5.50); Red Cell Distribution Width 14.4 % (11.5-14.5); White Blood Count 4.3 K/mcL (4.3-11.1)
[2021-05-09 06:49] LABS: BUN/Creatinine Ratio 31 (6-26); Blood Urea Nitrogen 21 mg/dL (8-23); Calcium 7.5 mg/dL (8.6-10.3); Carbon Dioxide 31 mEq/L (23-29); Chloride 106 mEq/L (98-107); Glucose 95 mg/dL (70-105); Osmolality,Calculated 291 (280-300); Potassium 3.8 mEq/L (3.5-5.1); Sodium 139 mEq/L (136-145); eGFR For African Americans > 60 (> 60); eGFR For Non-African Americans > 60 (> 60)
[2021-05-09] MEDS: Acetylcysteine 10% 2 ML INHSOL IH SCH ×3 (07:25→23:35)
[2021-05-09] MEDS ORDERED: Calcium Gluconate 1gm/50mL 1 GM/50 ML BAG IVPB ONE (07:26)
[2021-05-09] MEDS: Budesonide/Formoterol 160/4.5 1 PUFF INH IH SCH ×2 (07:26→19:34)
[2021-05-09] MEDS: Insulin LISPRO 300 UNITS/3 ML VIAL SUBQ SCH ×4 (08:18→21:22)
[2021-05-09] MEDS: Furosemide 20 MG TABLET PO SCH ×2 (08:40→17:15)
[2021-05-09] MEDS: Aspirin Enteric Coated 81 MG Tablet PO SCH (08:40)
[2021-05-09] MEDS: predniSONE 10 MG TABLET PO SCH (08:41)
[2021-05-10] MEDS: Ipratropium/Albuterol Neb 3 ML IH SCH ×5 (03:20→20:11)
[2021-05-10] MEDS: Budesonide/Formoterol 160/4.5 1 PUFF INH IH SCH ×2 (07:26→20:11)
[2021-05-10] MEDS: Acetylcysteine 10% 2 ML INHSOL IH SCH ×2 (07:26→15:36)
[2021-05-10 08:02] LABS: Hematocrit 27.1 % (37.5-50.1); Mean Corpuscular HGB Conc 33.2 g/dL (31.6-35.5); Mean Corpuscular Hemoglobin 29.8 pg (28.0-33.3); Mean Corpuscular Volume 89.7 fL (83.0-100.0); Mean Platelet Volume 9.8 fL (9.4-12.4); Platelet Count 131 K/mcL (140-400); Red Blood Count 3.02 M/mcL (4.19-5.50); Red Cell Distribution Width 14.5 % (11.5-14.5); White Blood Count 4.1 K/mcL (4.3-11.1)
[2021-05-10 08:23] LABS: BUN/Creatinine Ratio 26 (6-26); Blood Urea Nitrogen 18 mg/dL (8-23); Calcium 7.7 mg/dL (8.6-10.3); Carbon Dioxide 30 mEq/L (23-29); Chloride 104 mEq/L (98-107); Glucose 101 mg/dL (70-105); Osmolality,Calculated 286 (280-300); Potassium 3.9 mEq/L (3.5-5.1); Sodium 137 mEq/L (136-145); eGFR For African Americans > 60 (> 60); eGFR For Non-African Americans > 60 (> 60)
[2021-05-10] MEDS: Insulin LISPRO 300 UNITS/3 ML VIAL SUBQ SCH ×4 (08:52→22:24)
[2021-05-10] MEDS: Aspirin Enteric Coated 81 MG Tablet PO SCH (08:57)
[2021-05-10] MEDS: Furosemide 20 MG TABLET PO SCH (08:57)
[2021-05-10] MEDS: predniSONE 10 MG TABLET PO SCH (08:57)
[2021-05-11] MEDS: Ipratropium/Albuterol Neb 3 ML IH SCH ×7 (00:04→23:45)
[2021-05-11] MEDS: Acetylcysteine 10% 2 ML INHSOL IH SCH ×4 (00:04→23:46)
[2021-05-11 05:04] LABS: Hematocrit 28.1 % (37.5-50.1); Hemoglobin 9.5 g/dL (12.9-16.9); Mean Corpuscular HGB Conc 33.8 g/dL (31.6-35.5); Mean Corpuscular Hemoglobin 30.1 pg (28.0-33.3); Mean Corpuscular Volume 88.9 fL (83.0-100.0); Mean Platelet Volume 9.7 fL (9.4-12.4); Platelet Count 159 K/mcL (140-400); Red Blood Count 3.16 M/mcL (4.19-5.50); Red Cell Distribution Width 14.6 % (11.5-14.5); White Blood Count 4.7 K/mcL (4.3-11.1)
[2021-05-11 05:23] LABS: BUN/Creatinine Ratio 25 (6-26); Blood Urea Nitrogen 18 mg/dL (8-23); Calcium 7.7 mg/dL (8.6-10.3); Carbon Dioxide 28 mEq/L (23-29); Chloride 107 mEq/L (98-107); Glucose 87 mg/dL (70-105); Osmolality,Calculated 285 (280-300); Sodium 137 mEq/L (136-145); eGFR For African Americans > 60 (> 60); eGFR For Non-African Americans > 60 (> 60)
[2021-05-11] MEDS: Budesonide/Formoterol 160/4.5 1 PUFF INH IH SCH ×2 (07:38→19:42)
[2021-05-11] MEDS: Insulin LISPRO 300 UNITS/3 ML VIAL SUBQ SCH ×4 (09:03→21:13)
[2021-05-11] MEDS: predniSONE 10 MG TABLET PO SCH (10:32)
[2021-05-11] MEDS: Aspirin Enteric Coated 81 MG Tablet PO SCH (10:32)
[2021-05-11] MEDS: Calcium Gluconate 1gm/50mL 1 GM/50 ML BAG IVPB SCH ×2 (10:39→12:03)
[2021-05-12 03:42] LABS: Hematocrit 28.2 % (37.5-50.1); Hemoglobin 9.3 g/dL (12.9-16.9); Mean Corpuscular Hemoglobin 29.3 pg (28.0-33.3); Mean Platelet Volume 9.6 fL (9.4-12.4); Platelet Count 166 K/mcL (140-400); Red Blood Count 3.17 M/mcL (4.19-5.50); Red Cell Distribution Width 14.7 % (11.5-14.5); White Blood Count 4.6 K/mcL (4.3-11.1)
[2021-05-12 04:01] LABS: BUN/Creatinine Ratio 26 (6-26); Blood Urea Nitrogen 18 mg/dL (8-23); Calcium 7.9 mg/dL (8.6-10.3); Carbon Dioxide 26 mEq/L (23-29); Chloride 107 mEq/L (98-107); Glucose 117 mg/dL (70-105); Osmolality,Calculated 287 (280-300); Potassium 3.9 mEq/L (3.5-5.1); Sodium 137 mEq/L (136-145); eGFR For African Americans > 60 (> 60); eGFR For Non-African Americans > 60 (> 60)
[2021-05-12] MEDS: Ipratropium/Albuterol Neb 3 ML IH SCH ×3 (04:21→10:57)
[2021-05-12] MEDS: Acetylcysteine 10% 2 ML INHSOL IH SCH (08:02)
[2021-05-12] MEDS: Budesonide/Formoterol 160/4.5 1 PUFF INH IH SCH (08:02)
[2021-05-12] MEDS: Insulin LISPRO 300 UNITS/3 ML VIAL SUBQ SCH (10:06)
[2021-05-12] MEDS: predniSONE 10 MG TABLET PO SCH (11:52)
[2021-05-12] MEDS: Aspirin Enteric Coated 81 MG Tablet PO SCH (11:52)
[2021-05-12 12:08] VITALS: BP 103/62; PULSE 76; TEMP 98; O2SAT 97
[2021-05-12 13:22] LABS: Adenovirus Not Detected (Not Detect); Bordetella Pertussis Not Detected (Not Detect); Chlamydophila pneumoniae Not Detected (Not Detect); Coronavirus 229E Not Detected (Not Detect); Coronavirus HKU1 Not Detected (Not Detect); Coronavirus NL63 Not Detected (Not Detect); Coronavirus OC43 Not Detected (Not Detect); Human Metapneumovirus Not Detected (Not Detect); Human Rhinovirus/Enterovirus Not Detected (Not Detect); Influenza A Subtype 2009 H1 Not Detected (Not Detect); Influenza B Not Detected (Not Detect); Mycoplasma pneumoniae Not Detected (Not Detect); Parainfluenza Virus 1 Not Detected (Not Detect); Parainfluenza Virus 2 Not Detected (Not Detect); Parainfluenza Virus 3 Not Detected (Not Detect); Parainfluenza Virus 4 Not Detected (Not Detect); Respiratory Syncytial Virus Not Detected (Not Detect); SARS-CoV-2 Not Detected (Not Detect)
== END 2021-05-12 13:32 | DRG 853 ==
LOC: 2ANU → SUATTDRO 04-09 10:34 → 2NNU 04-12 18:53 → 2NENU 05-01 02:35 → ICNU 05-02 17:40 → 3ANU 05-05 12:44
PROVIDERS: ADMIT Student in an Organized Health Care Education/Training Program; ATTEND Internal Medicine